=== PATIENT | female | born 1945 | race Hispanic/Latino ===

== ENCOUNTER → 2017-08-18 | Outpatient (CLI) | payer OTHER, MEDICARE ==
[~2017-08-18] MED LIST: ALEN70TA47 PO; ASPI-1197 PO; AZIT500T4 PO; CLON0.1T PO; FAMO20TA8 PO; GLIP10TA9 PO; HYDR12.530 PO; INSLAN SQ; METO50TA18 PO; OLME1TAB9 PO; OLOP2.5D OU; OMEG-98 PO; OSEL75 PO; OXYB5TAB10 PO; PROPOFOL 10 MG/ML 20ML VIAL IV ONE; REPA2TAB8 PO; ROSU20TA38 PO; SERT100T12 PO; SITA50TA PO; SUCR1TAB2 PO; TRAM50TA4 PO; TRAZ-144 PO
== END | disposition home or self-care (01) ==
LOC: RAH 16:02
PROVIDERS: ATTEND Psychiatry & Neurology Neurology
DX: M50.022 Cervical disc disorder at C5-C6 level with myelopathy (principal)
CPT/HCPCS: 72040

== ENCOUNTER 2017-08-20 08:17 | Day surgery (SDC) | payer OTHER, MEDICARE ==
[~2017-08-20 08:17] MED LIST changes: -AZIT500T4 PO; -OLME1TAB9 PO; -OLOP2.5D OU; -OMEG-98 PO; -OSEL75 PO; -OXYB5TAB10 PO; -PROPOFOL 10 MG/ML 20ML VIAL IV ONE; +SODIUM CHLORIDE 0.9% 1000ML 1,000 ML IV ONE
[2017-08-20 09:14] VITALS: BP 89/39
== END 2017-08-20 09:52 | disposition home or self-care (01) ==
LOC: DAH 08:17
PROVIDERS: ATTEND Internal Medicine Gastroenterology
DX: K22.70 Barrett's esophagus without dysplasia (principal); E11.9 Type 2 diabetes mellitus without complications; K21.9 Gastro-esophageal reflux disease without esophagitis; K58.8 Other irritable bowel syndrome; I10 Essential (primary) hypertension; E78.5 Hyperlipidemia, unspecified; M19.90 Unspecified osteoarthritis, unspecified site; F32.9 Major depressive disorder, single episode, unspecified; Z79.899 Other long term (current) drug therapy; Z86.010 Personal history of colon polyps; Z98.890 Other specified postprocedural states
CPT/HCPCS: 43239; 82948 ×2; 88305; 93005; A4606; J7030

== ENCOUNTER → 2017-09-16 | Outpatient (CLI) | payer OTHER, MEDICARE ==
[~2017-09-16] MED LIST changes: -FAMO20TA8 PO; -SODIUM CHLORIDE 0.9% 1000ML 1,000 ML IV ONE
== END ==
LOC: RAH 10:40
PROVIDERS: ATTEND Internal Medicine Gastroenterology
DX: K31.84 Gastroparesis (principal)
CPT/HCPCS: 78264; A9541

== ENCOUNTER → 2017-10-21 | Outpatient (CLI) | payer OTHER, MEDICARE ==
[~2017-10-21] MED LIST changes: +ROSU20TA30 PO; -ROSU20TA38 PO; -TRAZ-144 PO; +TRAZ-185 PO
== END | disposition home or self-care (01) ==
LOC: SHCH 14:12
PROVIDERS: ATTEND Internal Medicine Cardiovascular Disease
DX: I50.9 Heart failure, unspecified (principal); I31.3 Pericardial effusion (noninflammatory)
CPT/HCPCS: 93306

== ENCOUNTER → 2017-11-10 | Outpatient (CLI) | payer OTHER, MEDICARE ==
[~2017-11-10] MED LIST changes: +ALBUTEROL SULFATE 0.083% 2.5 MG/3 ML INH IH ONE
== END | disposition home or self-care (01) ==
LOC: RESP 12:56
PROVIDERS: ATTEND Internal Medicine
DX: J40 Bronchitis, not specified as acute or chronic (principal); R06.02 Shortness of breath; R06.00 Dyspnea, unspecified
CPT/HCPCS: 94060; 94727; 94729

== ENCOUNTER 2019-06-24 22:34 | Emergency (ER) | payer OTHER, MEDICARE ==
[~2019-06-24 22:34] MED LIST changes: -ALBUTEROL SULFATE 0.083% 2.5 MG/3 ML INH IH ONE; -ALEN70TA47 PO; +AMLO5TAB9 PO; +CALC-190 PO; +CETI10TA57 PO; +FLUT16H NASAL; +FURO20TA6 PO; +GABA-531 PO; -HYDR12.530 PO; +METO5TAB2 PO; +NAPR-1023 PO; +OLME1TAB84 PO; +OMEGA3 PO; +PANT40TA25 PO; -ROSU20TA30 PO; +ROSU20TA31 PO; -SUCR1TAB2 PO; -TRAM50TA4 PO; -TRAZ-185 PO
[2019-06-24 23:18] LABS: APPEARANCE,URINE Clear (CLEAR); BILIRUBIN,URINE Negative (NEGATIVE); COLOR,URINE Yellow (YELLOW); GLUCOSE, URINE (UA) Negative (NEGATIVE); KETONES,URINE Negative (NEGATIVE); LEUKOCYTE ESTERASE ,URINE Trace (NEGATIVE); NITRATE,URINE Negative (NEGATIVE); OCCULT BLOOD,URINE Small (NEGATIVE); PROTEIN,URINE POS 1+ mg/dL (NEGATIVE); UROBILINOGEN,URINE 0.2 mg/dL (0.2-1.0)
[2019-06-24] MEDS ORDERED: KETOROLAC TROMETHAMINE 30MG/ML ONE (23:18)
[2019-06-24] MEDS ORDERED: ONDANSETRON HCL 4 MG/2 ML VIAL ONE (23:18)
[2019-06-24] MEDS ORDERED: SODIUM CHLORIDE 0.9% 500ML 500 ML IV ONE (23:18)
[2019-06-24 23:24] LABS: BASOPHILS % (AUTO) 0.4 % (0.0-5.0); EOSINOPHILS % (AUTO) 0.6 % (0.0-8.0); HEMATOCRIT 34.4 % (36-48); LYMPHOCYTES % (AUTO) 22.5 % (21.0-51.0); MEAN CORPUSCULAR HGB CONC 33.1 g/dL (32.0-36.0); MEAN CORPUSCULAR VOLUME 93.5 fL (79-99); MONOCYTES % (AUTO) 7.2 % (3.0-13.0); NEUTROPHILS % (AUTO) 68.7 % (40.0-77.0); PLATELET COUNT (AUTO) 220 K/uL (130-400); RED BLOOD CELL COUNT(AUTO) 3.68 MIL/uL (4.00-5.50); RED CELL DISTRIBUTION WIDTH 14.3 % (11.0-15.5); WHITE BLOOD COUNT (AUTO) 11.2 K/uL (4.8-10.8)
[2019-06-24 23:31] LABS: CREATININE 1.3 mg/dL (0.5-1.5); POTASSIUM 4.5 mmol/L (3.5-5.1)
[2019-06-24 23:37] LABS: BACTERIA,URINE Few /HPF (None Seen); MUCUS,URINE Few LPF (None Seen); RBC,URINE 0-1 /HPF (0-1); SQUAMOUS EPITHELIAL CELL,UR Rare /HPF (0-2); WBC,URINE 0-1 /HPF (0-1)
[2019-06-24 23:38] LABS: ALBUMIN 3.4 g/dL (3.5-5.0); BILIRUBIN,DIRECT 0.1 mg/dL (0.0-0.3); BILIRUBIN,TOTAL 0.2 mg/dL (0.2-1.0); TOTAL PROTEIN, SERUM 7.4 g/dL (6.0-8.3)
[2019-06-25] MEDS ORDERED: DIAZEPAM 5 MG TABLET ONE (01:05)
== END 2019-06-25 01:17 | disposition home or self-care (01) ==
LOC: EDH 22:34
DX: R10.31 Right lower quadrant pain (principal); R19.7 Diarrhea, unspecified; Z91.010 Allergy to peanuts; E11.9 Type 2 diabetes mellitus without complications; E78.5 Hyperlipidemia, unspecified; I10 Essential (primary) hypertension; Z90.49 Acquired absence of other specified parts of digestive tract; Z98.890 Other specified postprocedural states
CPT/HCPCS: 36415; 74176; 80048; 80076; 81001; 82550; 83690; 84484; 85025; 93005; 96361; 96374; 96375; 99285; J1885; J2405; J7040

== ENCOUNTER → 2020-04-22 | Outpatient (CLI) | payer OTHER, MEDICARE ==
[~2020-04-22] MED LIST changes: +AMLO-257 PO; -AMLO5TAB9 PO; +OLME-9 PO; -OLME1TAB84 PO; -PANT40TA25 PO; +PANT40TA54 PO
== END | disposition home or self-care (01) ==
LOC: RAH 08:24
PROVIDERS: ATTEND Internal Medicine Gastroenterology
DX: K76.0 Fatty (change of) liver, not elsewhere classified (principal)
CPT/HCPCS: 76700

== ENCOUNTER 2020-05-01 17:54 | Emergency (ER) | payer OTHER, MEDICARE ==
[2020-05-01] MEDS ORDERED: HYDROCODONE/ACETAMINOPHEN 10/325 MG TAB ONE (18:52)
== END 2020-05-01 22:30 | disposition home or self-care (01) ==
LOC: EDH 17:54
DX: M25.562 Pain in left knee (principal); M79.661 Pain in right lower leg; W18.39XA Other fall on same level, initial encounter; Y93.89 Activity, other specified; Y92.098 Other place in other non-institutional residence as the place of occurrence of the external cause; Y99.8 Other external cause status
CPT/HCPCS: 70450; 72100; 72125; 73030; 73110; 73521; 73562; 73590; 93971

== ENCOUNTER → 2020-06-28 | Outpatient (CLI) | payer OTHER, MEDICARE ==
[~2020-06-28] MED LIST changes: +GADODIAMIDE 10 MMOL/20 ML VIAL IV ONE
== END | disposition home or self-care (01) ==
LOC: RAH 09:03
PROVIDERS: ATTEND Internal Medicine Gastroenterology
DX: R93.2 Abnormal findings on diagnostic imaging of liver and biliary tract (principal)
CPT/HCPCS: 74183; A9579

== ENCOUNTER → 2020-10-02 | Outpatient (CLI) | payer OTHER, MEDICARE ==
[~2020-10-02] MED LIST changes: -GADODIAMIDE 10 MMOL/20 ML VIAL IV ONE; +SERT-440 PO; -SERT100T12 PO
== END | disposition home or self-care (01) ==
LOC: RAH 08:00
PROVIDERS: ATTEND Internal Medicine Gastroenterology
DX: R93.2 Abnormal findings on diagnostic imaging of liver and biliary tract (principal); K76.0 Fatty (change of) liver, not elsewhere classified; R16.0 Hepatomegaly, not elsewhere classified; Z90.49 Acquired absence of other specified parts of digestive tract
CPT/HCPCS: 76700

== ENCOUNTER → 2021-09-15 | Outpatient (CLI) | payer OTHER ==
[~2021-09-15] VITALS: Wt 88.0 kg
== END | disposition home or self-care (01) ==
LOC: DTH 10:22
PROVIDERS: ATTEND Surgery
DX: Z71.3 Dietary counseling and surveillance (principal); G47.33 Obstructive sleep apnea (adult) (pediatric); I10 Essential (primary) hypertension; E11.9 Type 2 diabetes mellitus without complications; E78.00 Pure hypercholesterolemia, unspecified; K76.0 Fatty (change of) liver, not elsewhere classified; K21.9 Gastro-esophageal reflux disease without esophagitis; E66.09 Other obesity due to excess calories; Z68.37 Body mass index [BMI] 37.0-37.9, adult
CPT/HCPCS: 97802

== ENCOUNTER 2021-10-04 17:20 | Emergency (ER) | payer OTHER, MEDICARE ==
[~2021-10-04] VITALS: Ht 121.9 cm; Wt 90.7 kg
[2021-10-04] MEDS ORDERED: ONDANSETRON 4MG INJ IVP ONE (18:00)
[2021-10-04] MEDS ORDERED: 0.9%NACL 1000ML 1,000 ML IV ONE (18:00)
[2021-10-04] MEDS ORDERED: FAMOTIDINE 20MG VIAL IV ONE (18:00)
[2021-10-04 18:03] LABS: APPEARANCE,URINE Clear (CLEAR); BILIRUBIN,URINE Negative (NEGATIVE); COLOR,URINE Yellow (YELLOW); GLUCOSE, URINE (UA) Negative (NEGATIVE); KETONES,URINE Negative (NEGATIVE); LEUKOCYTE ESTERASE ,URINE Small (NEGATIVE); NITRATE,URINE Negative (NEGATIVE); OCCULT BLOOD,URINE Negative (NEGATIVE); PROTEIN,URINE POS 1+ mg/dL (NEGATIVE); UROBILINOGEN,URINE 0.2 mg/dL (0.2-1.0)
[2021-10-04 18:13] LABS: BASOPHILS % (AUTO) 0.4 % (0.0-5.0); EOSINOPHILS % (AUTO) 2.1 % (0.0-8.0); HEMATOCRIT 35.4 % (36-48); LYMPHOCYTES % (AUTO) 25.5 % (21.0-51.0); MEAN CORPUSCULAR HGB CONC 33.1 g/dL (32.0-36.0); MEAN CORPUSCULAR VOLUME 93.7 fL (79-99); MONOCYTES % (AUTO) 7.5 % (3.0-13.0); NEUTROPHILS % (AUTO) 64.2 % (40.0-77.0); PLATELET COUNT (AUTO) 197 K/uL (130-400); RED BLOOD CELL COUNT(AUTO) 3.78 MIL/uL (4.00-5.50); RED CELL DISTRIBUTION WIDTH 13.6 % (11.0-15.5); WHITE BLOOD COUNT (AUTO) 10.1 K/uL (4.8-10.8)
[2021-10-04 18:18] LABS: BACTERIA,URINE Few /HPF (None Seen); MUCUS,URINE Few LPF (None Seen); RBC,URINE 0-1 /HPF (0-1); SQUAMOUS EPITHELIAL CELL,UR Few /HPF (0-2)
[2021-10-04 18:23] LABS: CREATININE 1.4 mg/dL (0.5-1.5); POTASSIUM 3.9 mmol/L (3.5-5.1)
[2021-10-04 18:29] LABS: ALBUMIN 3.6 g/dL (3.5-5.0); BILIRUBIN,TOTAL 0.2 mg/dL (0.2-1.0); TOTAL PROTEIN, SERUM 7.6 g/dL (6.0-8.3)
[2021-10-04 19:30] VITALS: BP 132/58
[2021-10-04] MEDS ORDERED: LOPE1TAB PO (19:37)
[2021-10-04] MEDS ORDERED: L.AC1CAP6 PO (19:37)
[2021-10-04] MEDS ORDERED: ONDA4TAB10 PO (19:37)
[2021-10-04] MEDS ORDERED: LOPERAMIDE HCL 2 MG CAP PO ONE ×2 (19:49→20:00)
== END 2021-10-04 19:55 | disposition home or self-care (01) ==
LOC: EDH 17:20
DX: R19.7 Diarrhea, unspecified (principal); E11.9 Type 2 diabetes mellitus without complications; E78.00 Pure hypercholesterolemia, unspecified; I10 Essential (primary) hypertension; Z98.890 Other specified postprocedural states; Z79.899 Other long term (current) drug therapy; Z79.84 Long term (current) use of oral hypoglycemic drugs; Z79.82 Long term (current) use of aspirin; Z91.010 Allergy to peanuts; Z91.048 Other nonmedicinal substance allergy status
CPT/HCPCS: 36415; 74176; 80053; 81001; 83690; 85025; 93005; 96361; 96374; 96375; 99285; J2405; J3490; J7030

== ENCOUNTER → 2021-10-28 | Outpatient (CLI) | payer OTHER ==
[~2021-10-28] MED LIST changes: +L.AC1CAP6 PO; +LOPE1TAB PO; +ONDA4TAB10 PO
== END | disposition home or self-care (01) ==
LOC: DTH 11:18
PROVIDERS: ATTEND Surgery
DX: I10 Essential (primary) hypertension (principal); E66.3 Overweight; G47.33 Obstructive sleep apnea (adult) (pediatric); E11.9 Type 2 diabetes mellitus without complications; E78.00 Pure hypercholesterolemia, unspecified; K76.0 Fatty (change of) liver, not elsewhere classified; K21.9 Gastro-esophageal reflux disease without esophagitis
CPT/HCPCS: 97803

== ENCOUNTER → 2022-06-30 | Outpatient (CLI) | payer OTHER, MEDICARE ==
[~2022-06-30] MED LIST changes: +AMOX-426 PO; -ASPI-1197 PO; -CALC-190 PO; -CETI10TA57 PO; +CITA20TA17 PO; -CLON0.1T PO; +CLON0.2T PO; -FLUT16H NASAL; -FURO20TA6 PO; -GABA-531 PO; -GLIP10TA9 PO; -INSLAN SQ; +INSU100V3 SQ; -L.AC1CAP6 PO; -LOPE1TAB PO; -METO5TAB2 PO; -NAPR-1023 PO; -OLME-9 PO; -OMEGA3 PO; -ONDA4TAB10 PO; -PANT40TA54 PO; -REPA2TAB8 PO; -ROSU20TA31 PO; -SERT-440 PO; -SITA50TA PO; +TIRZ5PEN SQ
== END | disposition home or self-care (01) ==
LOC: RAH 13:01
PROVIDERS: ATTEND Family Medicine
DX: I10 Essential (primary) hypertension (principal); R55 Syncope and collapse
CPT/HCPCS: 70450

== ENCOUNTER → 2022-10-16 | Outpatient (CLI) | payer OTHER, MEDICARE ==
[~2022-10-16] MED LIST changes: +CEFU500T67 PO; +DIPH1TAB PO; +ONDA-104 PO
== END | disposition home or self-care (01) ==
LOC: RAH 10:04
PROVIDERS: ATTEND Internal Medicine Gastroenterology
DX: K21.9 Gastro-esophageal reflux disease without esophagitis (principal); R13.10 Dysphagia, unspecified; R14.0 Abdominal distension (gaseous)
CPT/HCPCS: 74240

== ENCOUNTER 2022-11-16 23:00 | Observation (INO) | payer OTHER, MEDICARE ==
[~2022-11-16] VITALS: Ht 152.4 cm; Wt 61.0 kg
[2022-11-17 01:33] LABS: BASOPHILS % (AUTO) 0.6 % (0.0-5.0); HEMATOCRIT 37.9 % (36-48); LYMPHOCYTES % (AUTO) 30.2 % (21.0-51.0); MEAN CORPUSCULAR HEMOGLOBIN 32.1 pg (27.0-33.0); MEAN CORPUSCULAR HGB CONC 33.2 g/dL (32.0-36.0); MEAN CORPUSCULAR VOLUME 96.7 fL (79-99); MONOCYTES % (AUTO) 7.3 % (3.0-13.0); NEUTROPHILS % (AUTO) 59.7 % (40.0-77.0); PLATELET COUNT (AUTO) 187 K/uL (130-400); RED BLOOD CELL COUNT(AUTO) 3.92 MIL/uL (4.00-5.50); RED CELL DISTRIBUTION WIDTH 12.8 % (11.0-15.5); WHITE BLOOD COUNT (AUTO) 8.4 K/uL (4.8-10.8)
[2022-11-17 01:47] LABS: ALBUMIN 3.8 g/dL (3.5-5.0); CREATININE 1.3 mg/dL (0.5-1.5); POTASSIUM 3.9 mmol/L (3.5-5.1); TOTAL PROTEIN, SERUM 7.7 g/dL (6.0-8.3)
[2022-11-17] MEDS ORDERED: DEXTROSE 50%-WATER 50 ML DISP.SYRIN IV ONE ×2 (01:50→02:00)
[2022-11-17] MEDS ORDERED: LACTULOSE 20 GM/30 ML UDCUP PO PRN (05:00)
[2022-11-17] MEDS ORDERED: DOCUSATE SODIUM 100 MG CAP PO PRN (05:00)
[2022-11-17] MEDS ORDERED: ACETAMINOPHEN 325 MG TAB PO PRN (05:00)
[2022-11-17] MEDS ORDERED: ACETAMINOPHEN 650 MG SUPPOSITORY RC PRN (05:00)
[2022-11-17] MEDS ORDERED: HYDRALAZINE 20MG/ML VIAL IV PRN (05:00)
[2022-11-17] MEDS ORDERED: TEMAZEPAM 15 MG CAPSULE PO PRN (05:00)
[2022-11-17] MEDS ORDERED: ONDANSETRON 4MG INJ IVP PRN (05:00)
[2022-11-17] MEDS ORDERED: LABETALOL 20MG SYG IV PRN (05:00)
[2022-11-17] MEDS ORDERED: CLONIDINE HCL 0.1 MG TABLET PO PRN (05:00)
[2022-11-17] MEDS ORDERED: DEXL60CA3 PO (05:55)
[2022-11-17] MEDS ORDERED: METO-391 PO (05:55)
[2022-11-17] MEDS ORDERED: OLME-9 PO (05:55)
[2022-11-17] MEDS ORDERED: INSU500V SQ (05:55)
[2022-11-17] MEDS ORDERED: ONDA4TAB10 PO (05:55)
[2022-11-17] MEDS ORDERED: CITA-107 PO (05:55)
[2022-11-17] MEDS ORDERED: SUCR1TAB2 PO (05:55)
[2022-11-17] MEDS ORDERED: ROSU20TA73 PO (05:55)
[2022-11-17] MEDS ORDERED: POTASSIUM CHLORIDE 10% ELIXIR 20 MEQ/15 ML UDCUP PO PRN (06:00)
[2022-11-17] MEDS ORDERED: KCL 20 MEQ ERTAB PO PRN (06:00)
[2022-11-17] MEDS ORDERED: POTASSIUM CHLORIDE 10MEQ/100ML 100 ML IV PRN (06:00)
[2022-11-17] MEDS ORDERED: MAGNESIUM 2GM PREMIX 50ML 50 ML IV PRN (06:00)
[2022-11-17] MEDS: DEXTROSE 5 % AND 0.9 % NACL 1,000 ML IV SCH ×3 (06:18→22:38)
[2022-11-17] MEDS: PANTOPRAZOLE 40 MG/VIAL IVP SCH ×2 (09:29→19:42)
[2022-11-17] MEDS: POLYETHYLENE GLYCOL 3350 17 GM POWD.PACK PO SCH (09:29)
[2022-11-17] MEDS: DOCUSATE SODIUM 100 MG CAP PO SCH (09:30)
[2022-11-17] MEDS: ENOXAPARIN SODIUM 30 MG/0.3 ML SQ SCH (09:30)
[2022-11-17] MEDS: SUCRALFATE 1 GM TABLET PO SCH ×2 (11:50→17:49)
[2022-11-17 14:15] LABS: APPEARANCE,URINE CLEAR (CLEAR); BILIRUBIN,URINE NEGATIVE (NEGATIVE); COLOR,URINE COLORLESS (YELLOW); GLUCOSE, URINE (UA) NEGATIVE (NEGATIVE); KETONES,URINE NEGATIVE (NEGATIVE); LEUKOCYTE ESTERASE ,URINE NEGATIVE Leu/uL (NEGATIVE); NITRATE,URINE NEGATIVE (NEGATIVE); OCCULT BLOOD,URINE NEGATIVE (NEGATIVE); PROTEIN,URINE NEGATIVE (NEGATIVE); UROBILINOGEN,URINE 0.2 mg/dL (0.2-1.0)
[2022-11-17 14:28] LABS: WBC,URINE 0-1 /HPF (0-1)
[2022-11-18 05:52] LABS: BASOPHILS % (AUTO) 0.6 % (0.0-5.0); EOSINOPHILS % (AUTO) 3.7 % (0.0-8.0); HEMATOCRIT 34.8 % (36-48); LYMPHOCYTES % (AUTO) 41.3 % (21.0-51.0); MEAN CORPUSCULAR HEMOGLOBIN 32.8 pg (27.0-33.0); MEAN CORPUSCULAR HGB CONC 33.3 g/dL (32.0-36.0); MEAN CORPUSCULAR VOLUME 98.3 fL (79-99); MONOCYTES % (AUTO) 8.3 % (3.0-13.0); PLATELET COUNT (AUTO) 164 K/uL (130-400); RED BLOOD CELL COUNT(AUTO) 3.54 MIL/uL (4.00-5.50); RED CELL DISTRIBUTION WIDTH 12.9 % (11.0-15.5)
[2022-11-18 06:01] LABS: CREATININE 1.3 mg/dL (0.5-1.5); MAGNESIUM 1.9 mg/dL (1.80-2.40); PHOSPHORUS 4.3 mg/dL (2.5-4.9); POTASSIUM 4.5 mmol/L (3.5-5.1)
[2022-11-18] MEDS ORDERED: POLYETHYLENE GLYCOL 3350 17 GM POWD.PACK PO SCH (10:00)
[2022-11-18] MEDS ORDERED: LOSARTAN 50 MG TABLET ONE (10:05)
[2022-11-18] MEDS: DOCUSATE SODIUM 100 MG CAP PO SCH (10:07)
[2022-11-18] MEDS: METOCLOPRAMIDE 10 MG/2 ML VIAL IVP SCH ×3 (10:07→16:28)
[2022-11-18] MEDS: POLYETHYLENE GLYCOL 3350 17 GM POWD.PACK PO SCH (10:07)
[2022-11-18] MEDS: SUCRALFATE 1 GM TABLET PO SCH ×3 (10:07→16:28)
[2022-11-18] MEDS: CITALOPRAM 20 MG TABLET PO SCH (10:07)
[2022-11-18] MEDS: METOPROLOL SUCCINATE 50 MG TAB.SR.24H PO SCH (10:07)
[2022-11-18] MEDS: PANTOPRAZOLE 40 MG/VIAL IVP SCH ×2 (10:08→22:56)
[2022-11-18] MEDS: HYDROCHLOROTHIAZIDE 25 MG TABLET PO SCH (10:08)
[2022-11-18] MEDS: LOSARTAN 100 MG TABLET PO SCH (10:08)
[2022-11-18] MEDS: ENOXAPARIN SODIUM 30 MG/0.3 ML SQ SCH (10:08)
[2022-11-18 22:00] VITALS: BP 102/66
[2022-11-19] VITALS: BP 126/54
[2022-11-19 04:16] VITALS: BP 112/54
[2022-11-19] MEDS: METOCLOPRAMIDE 10 MG/2 ML VIAL IVP SCH ×3 (05:26→17:24)
[2022-11-19] MEDS: SUCRALFATE 1 GM TABLET PO SCH ×3 (05:26→17:24)
[2022-11-19 07:30] VITALS: BP 106/53
[2022-11-19] MEDS: HYDROCHLOROTHIAZIDE 25 MG TABLET PO SCH (10:07)
[2022-11-19] MEDS: CITALOPRAM 20 MG TABLET PO SCH (10:07)
[2022-11-19] MEDS: LOSARTAN 100 MG TABLET PO SCH (10:08)
[2022-11-19] MEDS: PANTOPRAZOLE 40 MG/VIAL IVP SCH (10:08)
[2022-11-19] MEDS: DOCUSATE SODIUM 100 MG CAP PO SCH (10:08)
[2022-11-19] MEDS: METOPROLOL SUCCINATE 50 MG TAB.SR.24H PO SCH (10:08)
[2022-11-19] MEDS: POLYETHYLENE GLYCOL 3350 17 GM POWD.PACK PO SCH (10:08)
[2022-11-19] MEDS: ENOXAPARIN SODIUM 30 MG/0.3 ML SQ SCH (10:09)
[2022-11-19 11:00] VITALS: BP 113/66
[2022-11-19] MEDS ORDERED: LACTULOSE 20 GM/30 ML UDCUP PO ONE (12:00)
[2022-11-19] MEDS ORDERED: METO5TAB87 PO (15:54)
[2022-11-19 16:00] VITALS: BP 113/56
== END 2022-11-19 18:00 | disposition home or self-care (01) ==
LOC: EDH 23:00 → EDHIP 11-17 04:45 → 3DH 11-18 20:31
PROVIDERS: ADMIT Internal Medicine Critical Care Medicine; ATTEND Internal Medicine Critical Care Medicine
DX: K31.84 Gastroparesis (principal); R42 Dizziness and giddiness; S00.12XA Contusion of left eyelid and periocular area, initial encounter; S00.11XA Contusion of right eyelid and periocular area, initial encounter; K29.50 Unspecified chronic gastritis without bleeding; K59.00 Constipation, unspecified; E11.649 Type 2 diabetes mellitus with hypoglycemia without coma; E66.3 Overweight; I10 Essential (primary) hypertension; K21.9 Gastro-esophageal reflux disease without esophagitis; E11.43 Type 2 diabetes mellitus with diabetic autonomic (poly)neuropathy; E73.9 Lactose intolerance, unspecified; Z79.4 Long term (current) use of insulin; Z79.899 Other long term (current) drug therapy; Z79.82 Long term (current) use of aspirin; Z98.84 Bariatric surgery status; Z91.010 Allergy to peanuts; X58.XXXA Exposure to other specified factors, initial encounter; Y93.89 Activity, other specified; Y92.89 Other specified places as the place of occurrence of the external cause
CPT/HCPCS: 96376 ×3; 96372 ×3; 96361 ×2; 96375 ×2; 99285; 80053; 83690; 85025 ×2; 82948 ×17; 81001; 36415 ×2; 74176; 83735; 84100; 80048; 96365; G0378 ×60; J7042 ×2; J7070; J1650 ×3; J2405; C9113 ×5; J2765 ×4; J3475

== ENCOUNTER 2023-06-04 11:28 | Emergency (ER) | payer OTHER, MEDICARE ==
[~2023-06-04] VITALS: Ht 152.4 cm; Wt 63.5 kg
[~2023-06-04 11:28] MED LIST changes: -AMLO-257 PO; -AMOX-426 PO; +CITA-107 PO; -CITA20TA17 PO; -CLON0.2T PO; +DEXL60CA3 PO; -INSU100V3 SQ; +METO-391 PO; -METO50TA18 PO; +METO5TAB87 PO; +OLME-9 PO; +ONDA4TAB10 PO; +ROSU20TA73 PO; +SUCR1TAB2 PO; -TIRZ5PEN SQ
[2023-06-04 11:32] VITALS: BP 142/70; PULSE 97; RESP 16
== END 2023-06-04 13:11 | disposition left against medical advice (07) ==
LOC: EDH 11:28
DX: F32.A Depression, unspecified (principal); F41.9 Anxiety disorder, unspecified; I10 Essential (primary) hypertension; E78.00 Pure hypercholesterolemia, unspecified; Z79.899 Other long term (current) drug therapy; Z98.890 Other specified postprocedural states; Z88.8 Allergy status to other drugs, medicaments and biological substances; Z91.018 Allergy to other foods
CPT/HCPCS: 99281

== ENCOUNTER → 2024-01-18 | Outpatient (CLI) | payer OTHER, MEDICARE ==
[~2024-01-18] MED LIST changes: +OLME-30 PO; -OLME-9 PO; +ONDA-243 PO; -ONDA4TAB10 PO
[2024-01-18 13:42] LABS: CREATININE 1.7 mg/dL (0.5-1.0); POTASSIUM 4.5 mmol/L (3.5-5.1)
== END | disposition home or self-care (01) ==
LOC: LAB 10:36
PROVIDERS: ATTEND Nurse Practitioner Acute Care
DX: I25.10 Atherosclerotic heart disease of native coronary artery without angina pectoris (principal); E78.2 Mixed hyperlipidemia
CPT/HCPCS: 36415; 80048; 80061

== ENCOUNTER → 2024-10-03 | Outpatient (CLI) | payer OTHER, MEDICARE ==
[~2024-10-03] MED LIST changes: -ROSU20TA73 PO; +ROSU20TA98 PO
[2024-10-03 16:30] LABS: CREATININE 1.5 mg/dL (0.5-1.0); POTASSIUM 4.2 mmol/L (3.5-5.1)
== END | disposition home or self-care (01) ==
LOC: LAB 14:08
PROVIDERS: ATTEND Internal Medicine Cardiovascular Disease
DX: I13.0 Hypertensive heart and chronic kidney disease with heart failure and stage 1 through stage 4 chronic kidney disease, or unspecified chronic kidney disease (principal); E11.22 Type 2 diabetes mellitus with diabetic chronic kidney disease; I50.32 Chronic diastolic (congestive) heart failure; N18.32 Chronic kidney disease, stage 3b
CPT/HCPCS: 36415; 80048

== ENCOUNTER 2024-11-14 14:52 | Emergency (ER) | payer OTHER, MEDICARE ==
[~2024-11-14] VITALS: Ht 152.4 cm; Wt 65.3 kg
--- NOTE | 2024-11-14 15:54 | NUR ---
PT STATES SHE ATTEMPTED TO GO TO THE RESTROOM BUT WAS UNABLE TO PROVIDE URINE SAMPLE
[2024-11-14 16:51] LABS: BASOPHILS # (AUTO) 0.06 K/uL (0.00-0.20); BASOPHILS % (AUTO) 0.6 % (0.0-5.0); EOSINOPHILS # (AUTO) 0.09 K/uL (0.00-0.70); EOSINOPHILS % (AUTO) 0.9 % (0.0-8.0); HEMATOCRIT 34.1 % (36-48); IMMATURE GRANULOCYTE ABSOLUTE 0.03 K/uL (0-1); LYMPHOCYTES # (AUTO) 3.8 K/uL (1.0-4.8); LYMPHOCYTES % (AUTO) 37.7 % (21.0-51.0); MEAN CORPUSCULAR HEMOGLOBIN 32.5 pg (27.0-33.0); MEAN CORPUSCULAR HGB CONC 33.1 g/dL (32.0-36.0); MONOCYTES # (AUTO) 0.9 K/uL (0.1-1.0); MONOCYTES % (AUTO) 9.2 % (3.0-13.0); NEUTROPHILS # (AUTO) 5.1 K/uL (1.8-7.7); NEUTROPHILS % (AUTO) 51.3 % (40.0-77.0); PLATELET COUNT (AUTO) 155 K/uL (130-400); RED BLOOD CELL COUNT(AUTO) 3.48 MIL/uL (4.00-5.50)
[2024-11-14] MEDS: mecliZINE HCL 25 MG TABLET PO ONE (17:01)
[2024-11-14] MEDS: 0.9%NACL 1000ML 1,000 ML IV ONE (17:01)
[2024-11-14] MEDS: ondanSETRON 4MG INJ IVP ONE (17:01)
[2024-11-14 17:02] LABS: CREATININE 1.5 mg/dL (0.5-1.0); POTASSIUM 4.4 mmol/L (3.5-5.1)
[2024-11-14 17:07] LABS: ADD UA MICROSCOPIC YES; APPEARANCE,URINE CLEAR (CLEAR); BILIRUBIN,URINE NEGATIVE (NEGATIVE); COLOR,URINE COLORLESS (YELLOW); GLUCOSE, URINE (UA) NEGATIVE (NEGATIVE); KETONES,URINE NEGATIVE (NEGATIVE); LEUKOCYTE ESTERASE ,URINE NEGATIVE Leu/uL (NEGATIVE); NITRATE,URINE NEGATIVE (NEGATIVE); OCCULT BLOOD,URINE NEGATIVE (NEGATIVE); PROTEIN,URINE 30 mg/dL (NEGATIVE); UROBILINOGEN,URINE 0.2 mg/dL (0.2-1.0)
[2024-11-14 17:09] LABS: RBC,URINE 0-1 /HPF (0-1); SQUAMOUS EPITHELIAL CELL,UR RARE /HPF (0-2)
[2024-11-14 17:13] LABS: ALBUMIN 3.2 g/dL (3.5-5.0); BILIRUBIN,TOTAL 0.3 mg/dL (0.2-1.0)
--- NOTE | 2024-11-14 17:32 | HMCIMG ---
CT HEAD WITHOUT CONTRAST INDICATION: Dizziness TECHNIQUE: Noncontrast axial helical CT images from the vertex through the skull base using 5 mm slice thickness without contrast material. Coronal and sagittal reconstructions were also included. Dose reduction techniques was used using integrated, automated and adaptive dose reduction exposure control. CT was performed with one or more of the following dose reduction techniques: Automated exposure control, adjustment of the mA and/or kV according to patient size, or use of iterative reconstruction technique. COMPARISON: 06/30/2022 FINDINGS: Scattered and coalescent subcortical and periventricular white matter low attenuating areas likely represent residual of chronic small vessel arteriopathy and/or remote vascular insult. Generalized mild cerebral cortical atrophy is present.. No evidence for abnormal extra-axial fluid collections or masses. The ventricles and sulci are normal in size and configuration. No evidence for intracranial parenchymal, epidural, or subdural hemorrhage, mass effect or midline shift. The valencia-white matter differentiation is well preserved. No secondary evidence to suggest acute ischemia. Mild calcific plaque is present along the dunn of the cavernous segments of both internal carotid arteries. The brainstem and cerebellum appear normal. The visualized orbits appear unremarkable. The visible paranasal sinuses and mastoid air cells are clear. The calvarium appears normal. IMPRESSION: Chronic white matter ischemic changes, mild brain atrophy, and arteriosclerotic disease as described, without acute component.
--- NOTE | 2024-11-14 18:01 | ERN ---
General Chief Complaint: Dizzy/Light Headed Stated Complaint: REACTION TO MEDICATIONS, DIZZY AND FATIGUE,SHAKING Time Seen by MD: 15:17 Time Seen by Midlevel: 15:17 Source: patient History of Present Illness Initial Comments The patient is a 79-year-old female presenting to the emergency department for evaluation of a possible medication reaction. The patient reports taking escitalopram and atorvastatin together and believes she may have had a reaction. She reports taking this medication earlier today and later developing dizziness, headache, generalized weakness, and a feeling of "jitteriness.". The patient reports having a history of type 2 diabetes and is on insulin and feels like her sugar is low. Allergies: Coded Allergies: No Known Drug Allergies (Verified Allergy, Unknown, 02/26/16) lactose (Unverified Allergy, Unknown, BLOATING, 02/26/16) LACTOSE INTOLERANCE peanut (Unverified Allergy, Unknown, NAUSEA/VOMITING, 02/26/16) PEANUT INTOLERANCE Home Meds Active Scripts Metoclopramide HCl (Reglan) 5 Mg Tablet, 5 MG PO ACHS for 30 Days, #120 TAB Prov:WILL DE LEON NP 11/19/22 Ondansetron HCl (Ondansetron HCl) 4 Mg Tablet, 4 MG PO TIDP PRN for VOMITING, #20 TAB Prov:BINA ROBERSON MD 08/19/22 Diphenoxylate HCl/Atropine (Lomotil Tablet) 1 Each Tablet, 2 TAB PO Q6HPRN PRN for DIARRHEA for 5 Days, #10 TAB 0 Refills Prov:BINA ROBERSON MD 08/19/22 Cefuroxime Axetil (Cefuroxime) 500 Mg Tablet, 500 MG PO BID, #20 TAB Prov:BINA ROBERSON MD 08/19/22 Reported Medications Sucralfate (Sucralfate) 1 Gm Tablet, 1 GM PO TIDAC, TAB 11/17/22 Dexlansoprazole (Dexilant) 60 Mg , 60 MG PO DAILY 11/17/22 Ondansetron (Ondansetron Odt) 4 Mg Tab.rapdis, 4 MG PO TID PRN for NAUS EA/VOMITING, TAB 11/17/22 Rosuvastatin Calcium (Rosuvastatin Calcium) 20 Mg Tablet, 20 MG PO DAILY, TAB 11/17/22 Olmesartan/Hydrochlorothiazide (Olmesartan-Hctz 40-12.5 mg Tab) 1 Each Tablet, 1 EACH PO DAILY, TAB 11/17/22 Citalopram Hydrobromide (Citalopram HBr) 20 Mg Tablet, 20 MG PO DAILY, TAB 11/17/22 Metoprolol Succinate (Metoprolol Succinate) 50 Mg Tab.er.24h, 50 MG PO DAILY, TAB 11/17/22 Past Medical History Past Medical History: Diabetes-Type II, High Cholesterol Medical History Other: HTN, DIABETES, CHOLESTEROL, KIDNEY PROBLEMS Past Surgical History: Bariatric Surgery, Surgical History Other: " REMOVAL FLUID FROM MY CHEST" Family History Family History: DM, HTN Social History Social History: Negative, Lives with family ROS Dictation CONSTITUTIONAL: Negative except for HPI HEAD/FACE: Negative except for HPI EENT: Negative except for HPI RESPIRATORY: Negative except for HPI GASTROINTESTINAL/ABDOMINAL: Negative except for HPI GENITOURINARY: Negative except for HPI MUSCULOSKELETAL: Negative except for HPI INTEGUMENTARY: Negative except for HPI NEUROLOGICAL/PSYCH: Negative except for HPI HEMATOLOGIC/LYMPHATIC: Negative except for HPI All Systems Negative, Except as noted above. 13 point review of systems assessed and all negative except for above. Physical Exam Physical Exam Dictation Vital Signs reviewed General Appearance: Alert, oriented x 3, no acute distress, well developed, nourished. Head and Face: non-traumatic. Eyes: PERRL, pink conjunctivas, eyelid no trauma, anterior chamber with arcus senilis. Ears: Pinnas intact and no signs of trauma or erythema ear canals clear and no discharge TM no erythema Nose: No discharge, no bleeding. Oropharynx: Mouth normal, tongue pink, pharynx clear,no erythema, tonsils no exudates, no abscesses noted, mucous membrane moist Neck: Supple, non-tender, no thyromegaly, no masses, no JVD, no bruits Breast:Deferred Chest:No tenderness, no crepitus, no paradoxical movement, no retractions Lungs:Clear, well-ventilated, symmetric, no rales, no wheezing, no rhonchi, no stridor, good breath sounds bilaterally Heart: Regular rate, regular rhythm, no murmur, no gallops Vascular: no peripheral edema, Abdomen: Soft, positive bowel sounds, nondistended, no guarding, nontender, no rebound, no masses no hepatomegaly, no splenomegaly, no Hardin's sign, no hernias. Rectal: Deferred Genital: Deferred Neurological: Normal speech, motor function intact, sensory function intact Musculoskeletal: Neck nontender, full range of motion, back nontender, full range of motion, Extremities: nontender, full range of motion Skin: Color pink, dry, no turgor, no rash, no lacerations, no abrasions, no contusions. Lymphatic: Deferred Results Laboratory and Microbiology Lab and Micro Result Laboratory Tests Test 11/14/24 16:44 11/14/24 16:54 11/14/24 16:55 White Blood Count 10.0 K/uL (4.8-10.8) Red Blood Count 3.48 MIL/uL (4.00-5.50) L Hemoglobin 11.3 g/dL (12.0-16.0) L Hematocrit 34.1 % (36-48) L Mean Corpuscular Volume 98.0 fL (79-99) Mean Corpuscular Hemoglobin 32.5 pg (27.0-33.0) Mean Corpuscular Hemoglobin Concent 33.1 g/dL (32.0-36.0) Red Cell Distribution Width 13.0 % (11.0-15.5) Platelet Count 155 K/uL (130-400) Mean Platelet Volume 11.7 fL (7.5-10.5) H Immature Granulocyte % (Auto) 0.3 % (0-1) Neutrophils (%) (Auto) 51.3 % (40.0-77.0) Lymphocytes (%) (Auto) 37.7 % (21.0-51.0) Monocytes (%) (Auto) 9.2 % (3.0-13.0) Eosinophils (%) (Auto) 0.9 % (0.0-8.0) Basophils (%) (Auto) 0.6 % (0.0-5.0) Neutrophils # (Auto) 5.1 K/uL (1.8-7.7) Lymphocytes # (Auto) 3.8 K/uL (1.0-4.8) Monocytes # (Auto) 0.9 K/uL (0.1-1.0) Eosinophils # (Auto) 0.09 K/uL (0.00-0.70) Basophils # (Auto) 0.06 K/uL (0.00-0.20) Absolute Immature Granulocyte (auto 0.03 K/uL (0-1) Nucleated Red Blood Cells 0.0 % (0.0-0.19) Sodium Level 142 mmol/L (136-145) Potassium Level 4.4 mmol/L (3.5-5.1) Chloride Level 106 mmol/L (101-111) Carbon Dioxide Level 28 mmol/L (21-32) Blood Urea Nitrogen 31 mg/dL (7-18) H Creatinine 1.5 mg/dL (0.5-1.0) H Glomerular Filtration Rate Calc 35 mL/min (>90) Random Glucose 71 mg/dL (70-105) Total Calcium 9.0 mg/dL (8.5-10.1) Total Bilirubin 0.3 mg/dL (0.2-1.0) Aspartate Amino Transf (AST/SGOT) 28 U/L (10-37) Alanine Aminotransferase (ALT/SGPT) 24 U/L (12-78) Alkaline Phosphatase 124 U/L (50-136) Troponin I High Sensitivity 7 ng/L (4-50) Total Protein 7.0 g/dL (6.0-8.3) Albumin 3.2 g/dL (3.5-5.0) L Urine Color COLORLESS (YELLOW) Urine Appearance CLEAR (CLEAR) Urine pH 6.0 (5.0-8.0) Urine Specific [place] 1.004 (1.001-1.031) Urine Protein 30 mg/dL (NEGATIVE) H Urine Glucose (UA) NEGATIVE mg/dL (NEGATIVE) Urine Ketones NEGATIVE mg/dL (NEGATIVE) Urine Occult Blood NEGATIVE (NEGATIVE) Urine Nitrate NEGATIVE (NEGATIVE) Urine Bilirubin NEGATIVE mg/dL (NEGATIVE) Urine Urobilinogen 0.2 mg/dL (0.2-1.0) Urine Leukocyte Esterase NEGATIVE Sharath/uL Urine RBC 0-1 /HPF (0-1) Urine WBC 2-5 /HPF (0-1) H Urine Squamous Epithelial Cells RARE /HPF (0-2) Urine Bacteria None /HPF (None Seen) Whole Blood Glucose 85 MG/DL (70-110) Labs Reviewed?: Yes MDM MDM: Differential diagnosis: Dehydration, electrolyte abnormality, medication reaction There are no social concerns with this patient. Prescription drug management Prescriptions will include: None Medical management and examination interpretation discussions were had by me with other qualified healthcare professionals as indicated for the patient's care. ED Course Orders Procedure Category Date Status Time Cbc With Differential LAB 11/14/24 Complete 16:32 Comprehensive LAB 11/14/24 Complete Metabolic Panel 16:32 Urinalysis Profile LAB 11/14/24 Complete 16:32 12 Lead Ekg Tracing- EKG 11/14/24 Logged Technical 16:33 Troponin I High LAB 11/14/24 Complete Sensitivity 16:52 Ondansetron 4mg Inj PHA 11/14/24 Complete (Zofran 4mg Inj) 17:00 Meclizine Hcl 25 Mg PHA 11/14/24 Complete (Antivert 25 Mg) 17:00 0.9%Nacl 1000ml (Ns PHA 11/14/24 Complete 1000ml) 17:00 Ct Head/Brain W/O CT 11/14/24 Resulted Contrast 16:52 Pelvis 1-2vws RAD 11/14/24 Taken 18:05 Hip Unilat 2-3vw Right RAD 11/14/24 Resulted 18:05 Current Medications Medications (Trade) Dose Ordered Sig/Nicola Route PRN Reason Start Time Stop Time Status Last Admin Dose Admin Meclizine HCl (ANTIvert 25 mg) 25 mg ONCE ONCE PO 11/14/24 17:00 11/14/24 17:01 DC 11/14/24 17:01 Ondansetron HCl (zoFRAN 4MG INJ) 4 mg ONCE ONCE IVP 11/14/24 17:00 11/14/24 17:01 DC 11/14/24 17:01 Sodium Chloride 1,000 ml @ 0 mls/hr ONCE ONCE IV 11/14/24 17:00 11/14/24 17:01 DC 11/14/24 17:01 Vital Signs Date Time Temp Pulse Resp B/P (MAP) Pulse Ox O2 Delivery O2 Flow Rate FiO2 11/14/24 17:57 98.2 68 18 138/63 100 Room Air* 0 21 11/14/24 17:00 98.2 68 18 156/61 100 Room Air* 0 21 11/14/24 15:54 98.2 68 18 150/61 100 Room Air* 0 21 11/14/24 15:03 99.0 89 20 151/73 100 Room Air DX & DISP Disposition: Discharge Departure Impression: Primary Impression: Dehydration Additional Impression: Osteoarthritis of right hip Condition: Stable Additional Instructions: Your blood work today is consistent with dehydration. Your x-ray of the right hip does not show any evidence of an acute fracture or dislocation Referrals: OPHELIA MCKEON DO (PCP) Time of Disposition: 18:01 I have reviewed the case, and I agree with, Diagnosis and Plan I performed the substantive portion of the visit. I have reviewed and pers onally made and approve the management plan that is documented in the note by myself or the ARTEM. I acknowledge for responsibility for the patient's management plan. PURVI GARRISON November 14, 2024 18:01
--- NOTE | 2024-11-14 19:13 | HMCIMG ---
HIP UNILAT 2-3VW RIGHT HISTORY: Status post fall COMPARISON: None TECHNIQUE: 2 images of right hip were obtained. FINDINGS: Right hip joint space narrowing is seen. Vascular calcifications are seen. There is no acute displaced fracture or dislocation. Degenerative changes are seen. IMPRESSION: 1. Findings as described above.
--- NOTE | 2024-11-14 19:18 | HMCIMG ---
PELVIS 1-2VWS HISTORY: Status post fall COMPARISON: None TECHNIQUE: Frontal projection of the pelvis was obtained. FINDINGS: There is no acute displaced fracture or dislocation. Bilateral hip joint space narrowing is seen. Vascular calcifications are seen. Degenerative changes are seen. IMPRESSION: 1. Findings as described above.
[2024-11-14] MEDS ORDERED: MECL-302 PO (19:39)
[2024-11-14 19:46] VITALS: BP 155/69; PULSE 80; RESP 18; TEMP 98.1; O2SAT 99
--- NOTE | 2024-11-15 06:52 | EKG ---
[facility] Test Date: 2024-11-14 Test Time: 16:37:42 Pat Name: VANESSA GARRISON Department: ED Room: Gender: F Claim Technician: [id number] [phone] [id number] Requested By: PURVI GARRISON Order Number: [id number] Reading MD: Bentley Gonzalez Measurements Intervals [place] Rate: 73 P: 69 [place]: 130 QRS: 61 QRSD: 76 T: 34 QT: 395 QTc: 431 Interpretive Statements Sinus rhythm Atrial premature complex Compared to ECG 03/26/2022 18:41:47 Atrial premature complex(es) now present Atrial fibrillation no longer present ST (T wave) deviation no longer present Possible ischemia no longer present Electronically Signed On 11-15-2024 07:39:42 CDT by Bentley Gonzalez Please click the below link to view image of tracing.
== END 2024-11-14 19:49 | disposition home or self-care (01) ==
LOC: EDH 14:52
DX: E86.0 Dehydration (principal); M16.11 Unilateral primary osteoarthritis, right hip; E11.9 Type 2 diabetes mellitus without complications; E78.00 Pure hypercholesterolemia, unspecified; I10 Essential (primary) hypertension; Z79.4 Long term (current) use of insulin; Z79.899 Other long term (current) drug therapy
CPT/HCPCS: 99285; 96374; 70450; 84484; 80053; 85025; 82948; 81001; 36415; 73502; 93005; 72170; J2405

== ENCOUNTER 2025-02-08 09:42 | Emergency (ER) | payer OTHER, MEDICAID ==
[~2025-02-08] VITALS: Ht 152.4 cm; Wt 62.1 kg
[~2025-02-08 09:42] MED LIST changes: +MECL-302 PO
--- NOTE | 2025-02-08 10:07 | ERN ---
ED Note History of Present Illness Stated Complaint: WEAKNESS Chief Complaint: Weakness Time Seen by : 10:00 Dictation: PATIENT IS A 79-YEAR-OLD FEMALE WITH A HISTORY OF PANCREATITIS THAT IS STARTED PANCREATIC ENZYME REPLACEMENT ON WEDNESDAY. SHE STATES SHE HAS BEEN FEELING WEAK SINCE TAKING THE NEW MEDICATIONS. SHE STATES SHE HAS HAD NAUSEA WITHOUT VOMITING NO FEVER NO CHILLS AND DIFFUSE ABDOMINAL PAIN. NO CHEST PAIN NO BACK PAIN NO SOB. NO FEVER AT THIS TIME. DOES STATE SHE DOES NOT FEEL GOOD AFTER STARTING THE MEDICATIONS. Allergies: Coded Allergies: No Known Drug Allergies (Verified Allergy, Unknown, 02/26/16) lactose (Unverified Allergy, Unknown, BLOATING, 02/26/16) LACTOSE INTOLERANCE peanut (Unverified Allergy, Unknown, NAUSEA/VOMITING, 02/26/16) PEANUT INTOLERANCE Home Meds Active Scripts Meclizine HCl (Meclizine HCl) 25 Mg Tablet, 25 MG PO TID for vertigo, #30 TAB 0 Refills Prov:PURVI GARRISON PA 11/14/24 Metoclopramide HCl (Reglan) 5 Mg Tablet, 5 MG PO ACHS for 30 Days, #120 TAB Prov:WILL DE LEON CRIME SPECIALIST 11/19/22 Ondansetron HCl (Ondansetron HCl) 4 Mg Tablet, 4 MG PO TIDP PRN for VOMITING, #20 TAB Prov:BINA ROBERSON MD 08/19/22 Diphenoxylate HCl/Atropine (Lomotil Tablet) 1 Each Tablet, 2 TAB PO Q6HPRN PRN for DIARRHEA for 5 Days, #10 TAB 0 Refills Prov:BINA ROBERSON MD 08/19/22 Cefuroxime Axetil (Cefuroxime) 500 Mg Tablet, 500 MG PO BID, #20 TAB Prov:BINA ROBERSON MD 08/19/22 Reported Medications Sucralfate (Sucralfate) 1 Gm Tablet, 1 GM PO TIDAC, TAB 11/17/22 Dexlansoprazole (Dexilant) 60 Mg , 60 MG PO DAILY 11/17/22 Ondansetron (Ondansetron Odt) 4 Mg Tab.rapdis, 4 MG PO TID PRN for NAUSEA/VOMITING, TAB 11/17/22 Rosuvastatin Calcium (Rosuvastatin Calcium) 20 Mg Tablet, 20 MG PO DAILY, TAB 11/17/22 Olmesartan/Hydrochlorothiazide (Olmesartan-Hctz 40-12.5 mg Tab) 1 Each Tablet, 1 EACH PO DAILY, TAB 11/17/22 Citalopram Hydrobromide (Citalopram HBr) 20 Mg Tablet, 20 MG PO DAILY, TAB 11/17/22 Metoprolol Succinate (Metoprolol Succinate) 50 Mg Tab.er.24h, 50 MG PO DAILY, TAB 11/17/22 Past Medical History Past Medical History: Diabetes-Type II, High Cholesterol, Hypertension, Pancreatitis Additional Past Medical Hx: HTN, DIABETES, CHOLESTEROL, KIDNEY PROBLEMS Surgical History: Bariatric Surgery, Surgical History Other: " REMOVAL FLUID FROM MY CHEST" Family History: DM, HTN Social History: Negative, Lives with family History: Not Applicable RN Note Reviewed/Agreed w/PFSH: Yes Review of System Dictation CONSTITUTIONAL: NEGATIVE EXCEPT FOR HPI GENERALIZED BODY WEAKNESS HEAD/FACE: NEGATIVE EXCEPT FOR HPI EENT: NEGATIVE EXCEPT FOR HPI RESPIRATORY: NEGATIVE EXCEPT FOR HPI GASTROINTESTINAL/ABDOMINAL: NEGATIVE EXCEPT FOR HPI DIFFUSE ABDOMINAL PAIN NAUSEA GENITOURINARY: NEGATIVE EXCEPT FOR HPI MUSCULOSKELETAL: NEGATIVE EXCEPT FOR HPI INTEGUMENTARY: NEGATIVE EXCEPT FOR HPI NEUROLOGICAL/PSYCH: NEGATIVE EXCEPT FOR HPI HEMATOLOGIC/LYMPHATIC: NEGATIVE EXCEPT FOR HPI ALL SYSTEMS NEGATIVE, EXCEPT NOTED ABOVE. 13 POINT REVIEW OF SYSTEMS ASSESSED AND ALL NEGATIVE EXCEPT FOR ABOVE. Initial Vital Sign VS Vital Signs Date Time Temp Pulse Resp B/P (MAP) Pulse Ox O2 Delivery O2 Flow Rate FiO2 02/08/25 09:44 98.4 78 20 127/61 99 Room Air 0 02/08/25 09:55 21 Physical Exam Dictation VITAL SIGNS REVIEWED GENERAL APPEARANCE: ALERT, ORIENTED X 3, MILD ACUTE DISTRESS, WELL DEVELOPED, NOURISHED. HEAD AND FACE: NON-TRAUMATIC. EYES: PERRL, PINK CONJUNCTIVAS, EYELID NO TRAUMA, ANTERIOR CHAMBER WITH ARCUS SENILIS. EARS: PINNAS INTACT AND NO SIGNS OF TRAUMA OR ERYTHEMA EAR CANALS CLEAR AND NO DISCHARGE TM NO ERYTHEMA NOSE: NO DISCHARGE, NO BLEEDING. OROPHARYNX: MOUTH NORMAL, TONGUE PINK, PHARYNX CLEAR,NO ERYTHEMA, TONSILS NO EXUDATES, NO ABSCESSES NOTED, MUCOUS MEMBRANE MOIST NECK: SUPPLE, NON-TENDER, NO THYROMEGALY, NO MASSES, NO JVD, NO BRUITS BREAST:DEFERRED CHEST:NO TENDERNESS, NO CREPITUS, NO PARADOXICAL MOVEMENT, NO RETRACTIONS LUNGS:CLEAR, WELL-VENTILATED, SYMMETRIC, NO RALES, NO WHEEZING, NO RHONCHI, NO STRIDOR, GOOD BREATH SOUNDS BILATERALLY HEART: REGULAR RATE, REGULAR RHYTHM, NO MURMUR, NO GALLOPS VASCULAR: NO PERIPHERAL EDEMA, ABDOMEN: SOFT, POSITIVE BOWEL SOUNDS, NONDISTENDED, NO GUARDING, DIFFUSE ABDOMINAL TENDERNESS, NO REBOUND, NO MASSES NO HEPATOMEGALY, NO SPLENOMEGALY, NO SCHUMACHER'S SIGN, NO HERNIAS. NO FOCAL PAIN RECTAL: DEFERRED GENITAL: DEFERRED NEUROLOGICAL: NORMAL SPEECH, MOTOR FUNCTION INTACT, SENSORY FUNCTION INTACT MUSCULOSKELETAL: NECK NONTENDER, FULL RANGE OF MOTION, BACK NONTENDER, FULL RANGE OF MOTION, EXTREMITIES: NONTENDER, FULL RANGE OF MOTION SKIN: COLOR PINK, DRY, NO TURGOR, NO RASH, NO LACERATIONS, NO ABRASIONS, NO CONTUSIONS. LYMPHATIC: DEFERRED Results (Laboratory/Radiology) Laboratory/Radiology Laboratory Tests Test 02/08/25 10:00 02/08/25 10:26 Urine Color YELLOW (YELLOW) Urine Appearance CLEAR (CLEAR) Urine pH 5.5 (5.0-8.0) Urine Specific [place] 1.016 (1.001-1.031) Urine Protein 100 mg/dL (NEGATIVE) H Urine Glucose (UA) NEGATIVE mg/dL (NEGATIVE) Urine Ketones NEGATIVE mg/dL (NEGATIVE) Urine Occult Blood NEGATIVE (NEGATIVE) Urine Nitrate NEGATIVE (NEGATIVE) Urine Bilirubin NEGATIVE mg/dL (NEGATIVE) Urine Urobilinogen 0.2 mg/dL (0.2-1.0) Urine Leukocyte Esterase 25 Sharath/uL (NEGATIVE) H Urine RBC 0-1 /HPF (0-1) Urine WBC 6-10 /HPF (0-1) H Urine Squamous Epithelial Cells RARE /HPF (0-2) Urine Bacteria None /HPF (None Seen) White Blood Count 7.9 K/uL (4.8-10.8) Red Blood Count 3.44 MIL/uL (4.00-5.50) L Hemoglobin 11.3 g/dL (12.0-16.0) L Hematocrit 33.0 % (36-48) L Mean Corpuscular Volume 95.9 fL (79-99) Mean Corpuscular Hemoglobin 32.8 pg (27.0-33.0) Mean Corpuscular Hemoglobin Concent 34.2 g/dL (32.0-36.0) Red Cell Distribution Width 13.1 % (11.0-15.5) Platelet Count 183 K/uL (130-400) Mean Platelet Volume 11.6 fL (7.5-10.5) H Immature Granulocyte % (Auto) 0.3 % (0-1) Neutrophils (%) (Auto) 67.8 % (40.0-77.0) Lymphocytes (%) (Auto) 23.0 % (21.0-51.0) Monocytes (%) (Auto) 6.8 % (3.0-13.0) Eosinophils (%) (Auto) 1.5 % (0.0-8.0) Basophils (%) (Auto) 0.6 % (0.0-5.0) Neutrophils # (Auto) 5.4 K/uL (1.8-7.7) Lymphocytes # (Auto) 1.8 K/uL (1.0-4.8) Monocytes # (Auto) 0.5 K/uL (0.1-1.0) Eosinophils # (Auto) 0.12 K/uL (0.00-0.70) Basophils # (Auto) 0.05 K/uL (0.00-0.20) Absolute Immature Granulocyte (auto 0.02 K/uL (0-1) Nucleated Red Blood Cells 0.0 % (0.0-0.19) Sodium Level 139 mmol/L (136-145) Potassium Level 4.2 mmol/L (3.5-5.1) Chloride Level 103 mmol/L (101-111) Carbon Dioxide Level 27 mmol/L (21-32) Blood Urea Nitrogen 23 mg/dL (7-18) H Creatinine 1.6 mg/dL (0.5-1.0) H Glomerular Filtration Rate Calc 33 mL/min (>90) Random Glucose 99 mg/dL (70-105) Total Calcium 9.2 mg/dL (8.5-10.1) Total Bilirubin 0.5 mg/dL (0.2-1.0) Aspartate Amino Transf (AST/SGOT) 24 U/L (10-37) Alanine Aminotransferase (ALT/SGPT) 22 U/L (12-78) Alkaline Phosphatase 105 U/L (50-136) Troponin I High Sensitivity 9 ng/L (4-50) Total Protein 7.1 g/dL (6.0-8.3) Albumin 3.5 g/dL (3.5-5.0) Lipase 70 U/L (16-77) Labs Reviewed?: Yes EKG Comment: EKG SINUS RHYTHM/HEART RATE 76/OCCASIONAL PACS/AXIS NORMAL ED Course ED Course Orders Procedure Category Date Status Time Cbc With Differential LAB 02/08/25 Complete 10:05 Comprehensive LAB 02/08/25 Complete Metabolic Panel 10:05 Troponin I High LAB 02/08/25 Complete Sensitivity 10:05 Urinalysis Profile LAB 02/08/25 Complete 10:05 12 Lead Ekg Tracing- EKG 02/08/25 Logged Technical 10:05 Lipase LAB 02/08/25 Complete 10:05 0.9%Nacl 1000ml (Ns PHA 02/08/25 Complete 1000ml) 10:30 Culture Urine CARLOS 02/08/25 In Process 10:51 Current Medications Medications (Trade) Dose Ordered Sig/Nicola Route PRN Reason Start Time Stop Time Status Last Admin Dose Admin Sodium Chloride 1,000 ml @ 0 mls/hr ONCE ONCE IV 02/08/25 10:30 02/08/25 10:31 DC 02/08/25 10:42 Vital Signs Date Time Temp Pulse Resp B/P (MAP) Pulse Ox O2 Delivery O2 Flow Rate FiO2 02/08/25 11:09 98.4 86 20 123/65 99 Room Air* 0 21 02/08/25 09:55 98.4 78 20 127/61 99 Room Air* 0 21 02/08/25 09:44 98.4 78 20 127/61 99 Room Air 0 1130 DISCUSSED CLINICAL FINDINGS AT LENGTH WITH PATIENT SHE IS AWARE THAT HIS NO ACS NO URINARY TRACT INFECTION THERE IS NO ELECTROLYTE IMBALANCE NO DEHYDRATION SHE HAS STAGE 3 CHRONIC KIDNEY DISEASE. SHE IS HAVING SIDE EFFECTS OF THE MEDICATIONS. SHE NEEDS TO FOLLOW BACK HER DO WHO DR. MAJOR PRESCRIBED THE MEDICATIONS. ALL QUESTIONS AND HEART Score Response (Comments) Value EKG: Repolarization changes 1 Age: > 65yrs (+2) 2 Risk Factors: 1-2 risk factors (+1) 1 Initial Troponin: Normal limit (0) 0 Total 4 Medical Decision Making MDM MDM: DIFFERENTIAL DIAGNOSIS: ACS/AMI/UTI/ELECTROLYTE IMBALANCE/DEHYDRATION/PANCREATITIS RATIONALE: TESTS CONSIDERED AND ORDERED SECONDARY TO SHARED DECISION MAKING INCLUDE: EKG/LABS PREVIOUS OUTSIDE RECORDS REVIEWED: OLD ER VISITS. RISK OF COMPLICATION AND/OR MORBIDITY OR MORTALITY OF PATIENT MANAGEMENT: NONE MEDICATIONS-PER MEDICATION RECONCILIATION NEED FOR HOSPITALIZATION: PATIENT DOES NOT MEET CRITERIA FOR HOSPITALIZATION. NONE NEED FOR EMERGENCY MAJOR/MINOR SURGERY: NO THERE ARE NO SOCIAL CONCERNS WITH THIS PATIENT. PRESCRIPTION DRUG MANAGEMENT NONE PRESCRIPTIONS WILL INCLUDE SYMPTOMATIC CARE PATIENT'S PRIOR EXTERNAL MEDICAL RECORDS FROM OTHER ER VISITS WERE REVIEWED BY ME INDICATED. PRIOR TESTING AND RESULTS FROM PREVIOUS VISITS WERE REVIEWED. PRIOR TESTS WERE TAKEN INTO ACCOUNT WITH MEDICAL DECISION MAKING AND RESOURCE UTILIZATION, INDEPENDENT HISTORIAN/HISTORIANS WERE USED TO OBTAIN COMPLETE MEDICAL HISTORY. I INDEPENDENTLY INTERPRETED THE TEST THAT WERE PERFORMED, RESULTS WERE REVIEWED BY ME AND CONSIDERED FINDINGS ON RADIOLOGY IF ORDERED. MEDICAL MANAGEMENT AND EXAMINATION INTERPRETATION DISCUSSIONS WERE HAD BY ME W ITH OTHER QUALIFIED HEALTHCARE PROFESSIONALS INDICATED FOR THE PATIENT'S CARE. DX & DISP Disposition: Discharge Departure Impression: Primary Impression: Medication side effects present Additional Impression: Stage 3 chronic kidney disease Condition: Stable Additional Instructions: FOLLOW-UP WITH PRIMARY CARE PROVIDER IN 1 TO 2 DAYS. TAKE MEDICATIONS DIRECTED HERE IN THE EMERGENCY ROOM. OKAY TO CONTINUE HOME MEDICATIONS UNLESS OTHERWISE DISCUSSED DURING YOUR VISIT IN THE EMERGENCY ROOM TODAY. RETURN TO YOUR NEAREST EMERGENCY ROOM IF SYMPTOMS WORSEN OR IF THERE IS NO IMPROVEMENT. CALL 911 IF YOU NEED IMMEDIATE ASSISTANCE. TAKE TYLENOL OR MOTRIN [id number] NEEDED AND IF NO CONTRAINDICATIONS ARE PRESENT. INCREASE ORAL HYDRATION. A WOUND CULTURE OR URINE CULTURE WAS ORDERED HERE IN THE EMERGENCY ROOM DEPARTMENT PLEASE FOLLOW-UP WITH PRIMARY CARE PROVIDER AND ADVISE THEM TO GET REPEAT PORTS FROM OUR FACILITY. IF YOU HAD ANY RE WRAP/SPLINTS THAT WERE APPLIED HERE, PLEASE DO NOT REMOVE THEM UNTIL YOU SEE YOUR PRIMARY CARE OR SPECIALTY. DIET AND ACTIVITY TOLERATED. CONTINUE YOUR MEDICATIONS FROM YOUR DOCTOR IN FOLLOW HIM FOR THE SIDE EFFECTS OF THE MEDICATION. Referrals: OPHELIA MCKEON DO (PCP) Time of Disposition: 11:35 I have reviewed the case, and I agree with, Diagnosis and Plan SIXTO CHIRINOS NP Feb 08, 2025 10:07
[2025-02-08 10:19] LABS: APPEARANCE,URINE CLEAR (CLEAR); GLUCOSE, URINE (UA) NEGATIVE (NEGATIVE); LEUKOCYTE ESTERASE ,URINE 25 Leu/uL (NEGATIVE); NITRATE,URINE NEGATIVE (NEGATIVE); OCCULT BLOOD,URINE NEGATIVE (NEGATIVE)
[2025-02-08 10:36] LABS: IMMATURE GRANULOCYTE ABSOLUTE 0.02 K/uL (0-1); NUCLEATED RED BLOOD CELLS 0.0 % (0.0-0.19); PLATELET COUNT (AUTO) 183 K/uL (130-400); RED BLOOD CELL COUNT(AUTO) 3.44 MIL/uL (4.00-5.50); RED CELL DISTRIBUTION WIDTH 13.1 % (11.0-15.5); WHITE BLOOD COUNT (AUTO) 7.9 K/uL (4.8-10.8)
[2025-02-08] MEDS: 0.9%NACL 1000ML 1,000 ML IV ONE (10:42)
[2025-02-08 10:44] LABS: ADD UA MICROSCOPIC YES
[2025-02-08 10:46] LABS: SQUAMOUS EPITHELIAL CELL,UR RARE /HPF (0-2)
[2025-02-08 10:51] LABS: ASPARTATE AMINOTRANSFERASE 24.0 U/L (10-37); CREATININE 1.6 mg/dL (0.5-1.0); GLOMERULAR FILTR. RATE CALC 33.0 mL/min (>90); GLUCOSE,RANDOM 99.0 mg/dL (70-105); SODIUM SERUM 139.0 mmol/L (136-145); TOTAL PROTEIN, SERUM 7.1 g/dL (6.0-8.3); UREA NITROGEN, BLOOD 23.0 mg/dL (7-18)
[2025-02-08 11:45] VITALS: BP 123/49; PULSE 95; RESP 20; TEMP 98.4; O2SAT 100
--- NOTE | 2025-02-08 12:06 | EKG ---
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
== END 2025-02-08 12:00 | disposition home or self-care (01) ==
LOC: EDH 09:42
DX: R53.1 Weakness (principal); T50.905A Adverse effect of unspecified drugs, medicaments and biological substances, initial encounter; I12.9 Hypertensive chronic kidney disease with stage 1 through stage 4 chronic kidney disease, or unspecified chronic kidney disease; E11.22 Type 2 diabetes mellitus with diabetic chronic kidney disease; N18.30 Chronic kidney disease, stage 3 unspecified; E78.00 Pure hypercholesterolemia, unspecified; I49.1 Atrial premature depolarization; Z79.899 Other long term (current) drug therapy; Y92.89 Other specified places as the place of occurrence of the external cause
CPT/HCPCS: 99284; 96360; 84484; 80053; 83690; 85025; 87086; 81001; 36415; 93005; J7030

== ENCOUNTER 2025-05-07 16:08 | Observation (INO) | payer OTHER, MEDICAID ==
[~2025-05-07] VITALS: Ht 152.4 cm; Wt 62.0 kg
[~2025-05-07 16:08] MED LIST changes: +ACET-2743 PO; +ASPI-1197 PO; +ATOR40TA69 PO; -CEFU500T67 PO; -DEXL60CA3 PO; -DIPH1TAB PO; -MECL-302 PO; -METO-391 PO; -METO5TAB87 PO; -ONDA-104 PO; -ONDA-243 PO; -ROSU20TA98 PO; -SUCR1TAB2 PO
[2025-05-07 16:47] LABS: IMMATURE GRANULOCYTE ABSOLUTE 0.01 K/uL (0-1); NUCLEATED RED BLOOD CELLS 0.0 % (0.0-0.19); PLATELET COUNT (AUTO) 147 K/uL (130-400); RED BLOOD CELL COUNT(AUTO) 3.02 MIL/uL (4.00-5.50); RED CELL DISTRIBUTION WIDTH 13.4 % (11.0-15.5); WHITE BLOOD COUNT (AUTO) 6.5 K/uL (4.8-10.8)
[2025-05-07 16:57] LABS: CREATININE 2.0 mg/dL (0.5-1.0); GLOMERULAR FILTR. RATE CALC 25.0 mL/min (>90); GLUCOSE,RANDOM 191.0 mg/dL (70-105); SODIUM SERUM 138.0 mmol/L (136-145); UREA NITROGEN, BLOOD 36.0 mg/dL (7-18)
--- NOTE | 2025-05-07 17:25 | NUR ---
ASSUMED CARE AT THIS TIME PT PLACED IN FAST TRACK
--- NOTE | 2025-05-07 17:34 | EKG ---
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
[2025-05-07 17:43] LABS: APPEARANCE,URINE CLEAR (CLEAR); GLUCOSE, URINE (UA) NEGATIVE (NEGATIVE); LEUKOCYTE ESTERASE ,URINE NEGATIVE Leu/uL (NEGATIVE); NITRATE,URINE NEGATIVE (NEGATIVE); OCCULT BLOOD,URINE NEGATIVE (NEGATIVE)
[2025-05-07 17:44] LABS: ADD UA MICROSCOPIC YES
[2025-05-07 17:45] LABS: NON-SQUAMOUS EPITHELIAL CELL <1 /HPF (0-2); OTHER CASTS, URINE 1 /LPF (None Seen); SQUAMOUS EPITHELIAL CELL,UR RARE /HPF (0-2)
[2025-05-07] MEDS: 0.9%NACL 1000ML 1,000 ML IV STA (17:53)
[2025-05-07] MEDS: HYDROcodone/APAP 5/325 1 TAB TABLET PO ONE (17:54)
--- NOTE | 2025-05-07 17:55 | NUR ---
PT REFUSING PO PAIN MEDICATIONS STATES DOES NOT WORK NOTIFIED [employer].
--- NOTE | 2025-05-07 18:01 | ERN ---
ED Note History of Present Illness Stated Complaint: CHRONIC PAIN TO TAILBONE Chief Complaint: Other Problems Time Seen by MD: 16:17 Time Seen by Midlevel: 16:20 Dictation: 79-year-old female coming in with complaints of sacral pain that has been going on for months. Patient states she has been seen multiple times by her primary care provider and states they just gave her tramadol but does not help anymore. Denies any recent traumas. Patient also states on Wednesday she took a tramadol and her depression medication and states has been feeling generally weak since then. Denies having any fever, nausea vomiting or diarrhea. Allergies: Coded Allergies: No Known Drug Allergies (Verified Allergy, Unknown, 02/26/16) lactose (Unverified Allergy, Unknown, BLOATING, 02/26/16) LACTOSE INTOLERANCE peanut (Unverified Allergy, Unknown, NAUSEA/VOMITING, 02/26/16) PEANUT INTOLERANCE Home Meds Reported Medications Acetaminophen (Tylenol Extra Strength) 500 Mg Tablet, 500 MG PO AD for PAIN. 2 TABS , TAB 03/30/25 Aspirin (Aspirin) 81 Mg Tab.chew, 81 MG PO AD, TAB.CHEW 03/30/25 Atorvastatin Calcium (LIPITOR) 40 Mg Tablet, 40 MG PO PM, TAB 03/30/25 Olmesartan/Hydrochlorothiazide (Olmesartan-Hctz 40-12.5 mg Tab) 1 Each Tablet, 1 EACH PO DAILY, TAB 11/17/22 Citalopram Hydrobromide (Citalopram HBr) 20 Mg Tablet, 20 MG PO DAILY, TAB 11/17/22 Past Medical History Past Medical History: Anxiety, Depression, Diabetes-Type II, Heart Disease, Hypertension Additional Past Medical Hx: HTN, DIABETES, CHOLESTEROL, KIDNEY PROBLEMS Surgical History: Appendectomy, Surgical History Other: " REMOVAL FLUID FROM MY CHEST" Family History: DM, HTN Social History: Negative, Lives with family History: Not Applicable Review of System Dictation Constitutional: Generalized body weakness Eyes: Negative for injury, pain,redness, and discharge ENT: Negative for injury,pain or swelling Cardiovascular: Negative for chest pain, palpitations, and edema Respiratory: Negative for shortness of breath, cough, and wheezing, Abdomen/GI: Negative for abdominal pain, nausea, vomiting, diarrhea, and constipation Back: Negative for injury and pain : Negative for injury, bleeding and discharge MS/Extremity: Negative for injury and deformity, complaining of sacral pain Skin: Negative for rash, and discoloration Neuro: Negative for headache, weakness, numbness, tingling, and seizure Psych: Negative for suicide ideation, homicidal ideation, and hallucinations Review of Systems: was completed Initial Vital Sign VS Vital Signs Date Time Temp Pulse Resp B/P (MAP) Pulse Ox O2 Delivery O2 Flow Rate FiO2 05/07/25 16:09 97.9 84 16 136/59 99 Room Air 0 05/07/25 18:00 21 Physical Exam Dictation General: awake, alert, NAD Head/Face: Normocephalic, atraumatic Eyes: PERRL, EOMI, vision at baseline ENT: oral cavity clear, TMs clear, no signs of infection Neck: Trachea midline, supple, no nuchal rigidity Cardiovascular: RRR, normal S1/S2, No MRGs, no JVD Respiratory: CTAB, no respiratory distress, No rales or wheezes Abdomen: Soft, non-tender, non-distended, normal bowel sounds, no guarding or rebound. Skin: Warm, dry, normal turgor, no rash MS/Extremity: Pulses equal, no cyanosis, neurovascular intact, FROM Neuro: COAx4, GCS 15, strength 5/5, CN 2-12 intact, normal cerebellar exam, normal gait, Psych: Normal behavior, mood, and affect normal Results (Laboratory/Radiology) Laboratory/Radiology Laboratory Tests Test 05/07/25 16:35 05/07/25 17:38 White Blood Count 6.5 K/uL (4.8-10.8) Red Blood Count 3.02 MIL/uL (4.00-5.50) L Hemoglobin 9.9 g/dL (12.0-16.0) L Hematocrit 30.7 % (36-48) L Mean Corpuscular Volume 101.7 fL (79-99) H Mean Corpuscular Hemoglobin 32.8 pg (27.0-33.0) Mean Corpuscular Hemoglobin Concent 32.2 g/dL (32.0-36.0) Red Cell Distribution Width 13.4 % (11.0-15.5) Platelet Count 147 K/uL (130-400) Mean Platelet Volume 11.2 fL (7.5-10.5) H Immature Granulocyte % (Auto) 0.2 % (0-1) Neutrophils (%) (Auto) 66.3 % (40.0-77.0) Lymphocytes (%) (Auto) 25.5 % (21.0-51.0) Monocytes (%) (Auto) 6.5 % (3.0-13.0) Eosinophils (%) (Auto) 0.9 % (0.0-8.0) Basophils (%) (Auto) 0.6 % (0.0-5.0) Neutrophils # (Auto) 4.3 K/uL (1.8-7.7) Lymphocytes # (Auto) 1.7 K/uL (1.0-4.8) Monocytes # (Auto) 0.4 K/uL (0.1-1.0) Eosinophils # (Auto) 0.06 K/uL (0.00-0.70) Basophils # (Auto) 0.04 K/uL (0.00-0.20) Absolute Immature Granulocyte (auto 0.01 K/uL (0-1) Nucleated Red Blood Cells 0.0 % (0.0-0.19) Sodium Level 138 mmol/L (136-145) Potassium Level 3.9 mmol/L (3.5-5.1) Chloride Level 102 mmol/L (101-111) Carbon Dioxide Level 26 mmol/L (21-32) Blood Urea Nitrogen 36 mg/dL (7-18) H Creatinine 2.0 mg/dL (0.5-1.0) H Glomerular Filtration Rate Calc 25 mL/min (>90) Random Glucose 191 mg/dL (70-105) H Total Calcium 8.4 mg/dL (8.5-10.1) L Urine Color COLORLESS (YELLOW) Urine Appearance CLEAR (CLEAR) Urine pH 7.5 (5.0-8.0) Urine Specific [place] 1.007 (1.001-1.031) Urine Protein 20 mg/dL (NEGATIVE) H Urine Glucose (UA) NEGATIVE mg/dL (NEGATIVE) Urine Ketones NEGATIVE mg/dL (NEGATIVE) Urine Occult Blood NEGATIVE (NEGATIVE) Urine Nitrate NEGATIVE (NEGATIVE) Urine Bilirubin NEGATIVE mg/dL (NEGATIVE) Urine Urobilinogen 0.2 mg/dL (0.2-1.0) Urine Leukocyte Esterase NEGATIVE Sharath/uL Urine RBC 0-1 /HPF (0-1) Urine WBC 2-5 /HPF (0-1) H Urine Squamous Epithelial Cells RARE /HPF (0-2) Urine Non-Squamous Epithelial Cells <1 /HPF (0-2) Urine Bacteria None /HPF (None Seen) Urine Other Casts 1 /LPF (None Seen) Labs Reviewed?: Yes X-RAY Comment: [facility] [address] [place] [address] IMAGING REPORT Signed PATIENT: VANESSA GARRISON MR#: [id number] : 1945 SEX: F AGE: 79 LOCATION: [facility]H ORDER 163 STATUS: REG ER REPORT#: [id number] SERVICE 27 REASON: pain ORDERING PHYSICIAN: ADRIANE CISNEROS CNP PROCEDURE: SAC ROGER 2V - SACRUM/COCCYX 2+VWS EXAM: CR Sacrum and Coccyx, 3 View. CLINICAL HISTORY: pain COMPARISON: None provided. FINDINGS: BONES: No acute fracture or aggressive appearing osseous lesion. Bony alignment is anatomic. SOFT TISSUES: The soft tissues are unremarkable. IMPRESSION: No acute osseous abnormality. /[place] DICTATED BY: ROSIE HAMM Jr., MD DATE: 05/07/251914 ELECTRONICALLY SIGNED BY: ROSIE HAMM Jr., MD DATE: 05/07/251914 ED Course ED Course Orders Procedure Category Date Status Time Cbc With Differential LAB 05/07/25 Complete 16:28 Basic Metabolic Panel LAB 05/07/25 Complete 16:28 Urinalysis Profile LAB 05/07/25 Complete 16:28 Sacrum/Coccyx 2+Vws RAD 05/07/25 Resulted 16:28 Hydrocodone/Apap PHA 05/07/25 Complete 5/325 ([place] 5/325mg) 16:30 0.9%Nacl 1000ml (Ns PHA 05/07/25 Complete 1000ml) 16:28 12 Lead Ekg Tracing- EKG 05/07/25 Complete Technical 16:30 Ondansetron 4mg Inj PHA 05/07/25 Complete (Zofran 4mg Inj) 18:00 Morphine 2mg Syg PHA 05/07/25 Complete (Morphine 2mg Syg) 18:00 Current Medications Medications (Trade) Dose Ordered Sig/Nicola Route PRN Reason Start Time Stop Time Status Last Admin Dose Admin Acetaminophen/ Hydrocodone Bitart (NORco 5/325MG) 1 tab ONCE ONCE PO 05/07/25 16:30 05/07/25 16:31 DC Morphine Sulfate (morPHINE 2MG SYG) 2 mg ONCE ONCE IVP 05/07/25 18:00 05/07/25 18:01 DC Ondansetron HCl (zoFRAN 4MG INJ) 4 mg ONCE ONCE IVP 05/07/25 18:00 05/07/25 18:01 DC Sodium Chloride 1,000 ml @ 1,000 mls/hr Q1H STAT IV 05/07/25 16:28 05/07/25 17:27 DC 05/07/25 17:53 Vital Signs Date Time Temp Pulse Resp B/P (MAP) Pulse Ox O2 Delivery O2 Flow Rate FiO2 05/07/25 18:00 97.9 76 16 131/73 98 Room Air* 0 21 05/07/25 16:09 97.9 84 16 136/59 99 Room Air 0 Medical Decision Making MDM MDM: 79-year-old female coming in with complaints of sacral pain that has been going on for months. Patient states she has been seen multiple times by her primary care provider and states they just gave her tramadol but does not help anymore. Denies any recent traumas. Patient also states on Wednesday she took a tramadol and her depression medication and states has been feeling generally weak since then. Denies having any fever, nausea vomiting or diarrhea. 1800 primary nurse was going to start an IV and gave her [place] that I ordered for pain control, patient refused pills, she states her doctor gives her pills all the time, states they do not work, and states she has not even eaten so she does not want her stomach to be upset. Patient states he does not want to take any p.o. medication. Morphine IV. 1814 patient refused morphine, states he does not want any medication because she says medication in his just for now in the to go home with. Discussed findings with the patient [id number] discussed that her kidney function is worsening could be due to dehydration as he she has not eaten or drank anything in two days due to being asleep. Patient agreed to be admitted to the hospital. Differential diagnosis: Select fracture, arthritis, dehydration Rationale: Tests considered and ordered secondary to shared decision making incl ude: Previous outside records reviewed: Old ER visits. Risk of complication and/or morbidity or mortality of patient management: None Medications-Per medication reconciliation Need for hospitalization: Patient does not meet criteria for hospitalization. Need for emergency major/minor surgery: No There are no social concerns with this patient. Prescription drug management Prescriptions will include symptomatic care Patient's prior external medical records from other ER visits were reviewed by me as indicated. Prior testing and results from previous visits were reviewed. Prior tests were taken into account with medical decision making and resource utilization, independent historian/historians were used to obtain complete medical history. I independently interpreted the test that were performed, results were reviewed by me and considered findings on radiology if ordered. Medical management and examination interpretation discussions were had by me with other qualified healthcare professionals as indicated for the patient's care DX & DISP Disposition: Inpatient Decision to Admit Date: May 07, 2025 Decision to Admit Time: 18:44 Departure Impression: Primary Impression: Dehydration Additional Impressions: Arthritis, Acute on chronic kidney failure Condition: Stable Referrals: OPHELIA MCKEON DO (PCP) I have reviewed the case, and I agree with, Diagnosis and Plan ADRIANE CISNEROS CNP May 07, 2025 18:00
--- NOTE | 2025-05-07 18:16 | HMCIMG ---
EXAM: CR Sacrum and Coccyx, 3 View. CLINICAL HISTORY: pain COMPARISON: None provided. FINDINGS: BONES: No acute fracture or aggressive appearing osseous lesion. Bony alignment is anatomic. SOFT TISSUES: The soft tissues are unremarkable. IMPRESSION: No acute osseous abnormality. /[place]
--- NOTE | 2025-05-07 18:45 | HP ---
[facility] HISTORY & PHYSICAL Date Patient Seen: May 07, 2025 Time of Visit: 18:45 Supervising Physician: Dr. Mark Anthony Andrew Primary Care Physician: Dr. Arabella Dunn Outpatient Specialists: Inpatient Consults: controls designer PROBLEM LIST: Acute kidney injury, GFR 25 Acute on chronic kidney disease (GFR 38 on 03/30/2025) Dehydration Acute on chronic sacral pain, POA Arthritis Anemia of chronic kidney disease Diabetes mellitus with hyperglycemia Proteinuria Uncontrolled hyperglycemia Uncontrolled hypertension Chronic problem list: Anxiety, depression, DM type 2, heart disease, chronic kidney disease, hypercholesteremia, hypertension, chronic sacral pain HPI: Ms. Zapien is a 79-year-old female with a history of anxiety, depression, diabetes-type II, heart disease, kidney problems, cholesterol, and hypertension who presented to [facility] ED via EMS for evaluation of acute on chronic sacral pain that has been going on for about a year. The patient reports that her pain management doctor has been given her injections for her sacral pain and one of those times he hit the bone and since then the pain has gotten worse. The Patient stated she has been seen multiple times by her primary care provider and says they just gave her tramadol, which does not help anymore. She says that on Wednesday, she took a tramadol and her depression medication and stated she has been feeling generally weak. The patient denied any recent traumas, fever, nausea, vomiting, or diarrhea. VS: HR 84 bmp, RR 16 bmp, BP 136/59, 99% RA, 97.9 F, Labs: Chemistry: BUN 36, Creatinine 2.0, Random Glucose 191, Total Calcium 8.4, Hematology: RBC 3.02, Hgb 9.9, Hct 30.7, MCV 101.7, MPV 11.2, UA: Negative Nitrate, Negative Leukocyte, Sacrum and Coccyx X-Ray: No acute osseous abnormality. I assessed the patient at bedside in room 408. No family members at bedside. The patient appeared comfortable, breathing was even, unlabored, and in no distress. She reports that she follows with Dr. Jorgensen, controls designer for her chronic kidney disease. The patient reports that she drinks a lot of water. I answered her multiple questions, informed her of labs, diagnostics, and plan of care. She verbalized understanding and is in agreement with the plan. Plan and assessment are listed below. PAST MEDICAL HX: see above PAST SURGICAL HX: Appendectomy, and "removal of fluid from chest". SOCIAL HISTORY: No tobacco, ETOH, or illicit drug use Coded Allergies: No Known Drug Allergies (Verified Allergy, Unknown, 02/26/16) lactose (Unverified Allergy, Unknown, BLOATING, 02/26/16) LACTOSE INTOLERANCE peanut (Unverified Allergy, Unknown, NAUSEA/VOMITING, 02/26/16) PEANUT INTOLERANCE REVIEW OF SYSTEMS: 12 point ROS reviewed with patient. Pertinent positives mentioned above. Otherwise negative. PHYSICAL EXAM: GENERAL: Alert, weak, awake oriented x 3. Calm cooperative HEENT: EOMI, Sclera non icteric, moist mucosa NECK: Supple, no JVD, trachea midline LUNGS: Clear breath sounds bilaterally. No wheezes HEART: Regular rate and rhythm. Normal S1 and S2, without murmurs ABD: Abdomen soft, nontender. Bowel sounds present EXT: No clubbing cyanosis or edema NEURO: Alert and oriented x3, follows commands Vital Signs (last 8hr) Date Time Temp Pulse Resp B/P (MAP) Pulse Ox O2 Delivery O2 Flow Rate FiO2 05/07/25 18:00 97.9 76 16 131/73 98 Room Air* 0 21 05/07/25 16:09 97.9 84 16 136/59 99 Room Air 0 LABS: Hematology Labs: Test 05/07/25 16:35 Range/Units White Blood Count 6.5 4.8-10.8 K/uL Red Blood Count 3.02 L 4.00-5.50 MIL/uL Hemoglobin 9.9 L 12.0-16.0 g/dL Hematocrit 30.7 L 36-48 % Mean Corpuscular Volume 101.7 H 79-99 fL Mean Corpuscular Hemoglobin 32.8 27.0-33.0 pg Mean Corpuscular Hemoglobin Concent 32.2 32.0-36.0 g/dL Red Cell Distribution Width 13.4 11.0-15.5 % Platelet Count 147 130-400 K/uL Mean Platelet Volume 11.2 H 7.5-10.5 fL Immature Granulocyte % (Auto) 0.2 0-1 % Neutrophils (%) (Auto) 66.3 40.0-77.0 % Lymphocytes (%) (Auto) 25.5 21.0-51.0 % Monocytes (%) (Auto) 6.5 3.0-13.0 % Eosinophils (%) (Auto) 0.9 0.0-8.0 % Basophils (%) (Auto) 0.6 0.0-5.0 % Neutrophils # (Auto) 4.3 1.8-7.7 K/uL Lymphocytes # (Auto) 1.7 1.0-4.8 K/uL Monocytes # (Auto) 0.4 0.1-1.0 K/uL Eosinophils # (Auto) 0.06 0.00-0.70 K/uL Basophils # (Auto) 0.04 0.00-0.20 K/uL Absolute Immature Granulocyte (auto 0.01 0-1 K/uL Nucleated Red Blood Cells 0.0 0.0-0.19 % Chemistry Labs: Test 05/07/25 16:35 Range/Units Sodium Level 138 136-145 mmol/L Potassium Level 3.9 3.5-5.1 mmol/L Chloride Level 102 101-111 mmol/L Carbon Dioxide Level 26 21-32 mmol/L Blood Urea Nitrogen 36 H 7-18 mg/dL Creatinine 2.0 H 0.5-1.0 mg/dL Glomerular Filtration Rate Calc 25 >90 mL/min Random Glucose 191 H 70-105 mg/dL Total Calcium 8.4 L 8.5-10.1 mg/dL DIAGNOSTICS / RADIOLOGY RESULTS: [ ] PLAN -Admit to medical floor with telemetry monitoring. -Continue gentle IV hydration overnight. -Consult controls designer. -Keep the patient in euvolemic state. Correct electrolytes accordingly. Avoid nephrotoxic medications. -Adjust medications according to renal function. -Obtain renal sonogram. -PRN medications for: Pain management, fever, hypertension, N/V, constipation. -Glucometer checks AC & HS needed with insulin regular sliding scale coverage as needed. -Blood pressure checks every 4 hours and as needed. -Reconcile home medications once available. - Monitor renal and liver function. -Monitor electrolytes and treat accordingly PRN -AM labs. -GI and DVT prophylaxis -Further plan/orders per hospitalization course. Resume home medication aspirin, atorvastatin, citalopram, Olmesartan/hydrochlorothiazide NEURO: Minimize central acting medications as possible. Maintain fall precautions, adequate lighting during the day PULMONARY: Supplemental 02 as needed. Maintain aspiration precautions at all times CARDIOVASCULAR: Follow hemodynamics. Vital signs per facility protocol GI & NUTRITION: Continue with nutritional support. Continue stool softeners and laxatives as needed. KIDNEYS & ELECTROLYTES: Strict monitoring of intake, output and overall fluid balance. Avoid nephrotoxic medications to the extent possible. Medications to be dosed according to renal function. Monitor electrolytes and replace as needed ENDOCRINE: Maintain blood glucose between 100-180 at all times. Hypoglycemia protocol in place INFECTIOUS DISEASE: Trend temperature, WBC and procalcitonin level Follow cultures, deescalate antibiotics as soon as possible. Panculture if new onset fever ONCOLOGY/HEMATOLOGY/COAGULATION: Monitor for s/s of bleeding Monitor hemoglobin, coagulation studies as needed SKIN: Pressure ulcer prevention per facility protocol Specialty mattress ORTHO/REHAB: Continue PT/OT Prophylaxis: Continue GI and DVT prophylaxis Code Status: Full Resuscitation Disposition: TBD ATTESTATION BY PHYSICIAN The patient has been seen and evaluated, the case has been discussed with the MANUFACTURING CHIEF ENGINEER, I agree with the clinical findings and plan of care. Mark Anthony Andrew MD, [facility] May 07, 2025 18:45
--- NOTE | 2025-05-07 18:54 | NUR ---
PT DOES NOT WANT IV PAIN MEDS TILL SHE IS PLACED IN A ROOM
--- NOTE | 2025-05-07 19:15 | NUR ---
PLACED IN ER ROOM
[2025-05-07] MEDS ORDERED: LACTULOSE 20 GM/30 ML UDCUP PO PRN (19:30)
[2025-05-07] MEDS: FAMOTIDINE 20MG TAB PO SCH (21:36)
[2025-05-07] MEDS: LACTATED RINGERS 1000ML 1,000 ML IV ONE (21:37)
[2025-05-07 22:25] VITALS: BP 162/73; PULSE 78; RESP 22; TEMP 97.7
[2025-05-07 22:53] VITALS: O2SAT 98
--- NOTE | 2025-05-07 23:32 | NUR ---
Arrival Patient arrived at 2225. Patient alert and oriented x4. Patient reports no pain at this time. Patient requested a snack. Patient did ambulate to the restroom, void x1.
[2025-05-08] VITALS (8 sets, daily range): BP systolic 109–137; BP diastolic 38–66; PULSE 61–73; RESP 17–19; TEMP 97.9–98.1; O2SAT 98–99
[2025-05-08] MEDS: HYDROcodone/APAP 5/325 1 TAB TABLET PO PRN (02:24)
[2025-05-08 04:26] LABS: NUCLEATED RED BLOOD CELLS 0.0 % (0.0-0.19); PLATELET COUNT (AUTO) 148.0 K/uL (130-400); RED BLOOD CELL COUNT(AUTO) 3.0 MIL/uL (4.00-5.50); RED CELL DISTRIBUTION WIDTH 13.2 % (11.0-15.5); WHITE BLOOD COUNT (AUTO) 6.5 K/uL (4.8-10.8)
[2025-05-08 04:49] LABS: CREATININE 1.8 mg/dL (0.5-1.0); GLOMERULAR FILTR. RATE CALC 28.0 mL/min (>90); GLUCOSE,RANDOM 99.0 mg/dL (70-105); PHOSPHORUS 4.3 mg/dL (2.5-4.9); SODIUM SERUM 142.0 mmol/L (136-145); UREA NITROGEN, BLOOD 34.0 mg/dL (7-18)
[2025-05-08] MEDS: ASPIRIN 81MG CHEW TAB PO SCH (10:09)
[2025-05-08] MEDS: ENOXAPARIN SODIUM 30 MG/0.3 ML SQ SCH (10:11)
--- NOTE | 2025-05-08 14:32 | NUR ---
DCP:HOME Pt currently lives with her daughter Arabella Valero [phone]. Pt states that she uses a cane and walker at home to ambulate. Pt has a provider that works with her approx 4 hrs and assist with all ADLs, home management, and meals. PCP is Arabella Dunn and uses [facility] for any RX needs. At DC pt will want to go home and family can assist with transportation.
--- NOTE | 2025-05-08 15:06 | PN ---
[facility] PROGRESS NOTE Date Patient Seen: May 08, 2025 Time of Visit: 1248 Supervising Physician: Dr. Andrew Primary Care Physician: Dr. Arabella Dunn Outpatient Specialists: Inpatient Consults: resident programs assistant PROBLEM LIST: Acute on chronic kidney disease Acute Dehydration Acute on chronic sacral pain, POA Arthritis Anemia of chronic kidney disease Diabetes mellitus type 2 with hyperglycemia A1c 6.2 Proteinuria Uncontrolled hyperglycemia Uncontrolled hypertension Chronic problem list: Anxiety, depression, DM type 2, heart disease, chronic kidney disease, hypercholesteremia, hypertension, chronic sacral pain INTERVAL HISTORY: 05/08 patient was seen and examined by bedside with no family present. At time of visit patient denies any chest pain or shortness of breadth. Denies any nausea vomiting or abdominal pain. Patient's serum creatinine level noted to be trending down today 1.8 Upon admission 2.0. Patient does have chronic kidney disease however baseline appears to be around 1.5. Patient currently pending renal ultrasound. An evaluation from Nephrology's. Appreciate assistance we will follow their recommendations. If ultrasound is unremarkable and patient is cleared by Nephrology's plan will be for discharge tomorrow morning. REVIEW OF SYSTEMS: 12 point ROS reviewed with patient. Pertinent positives mentioned above. Otherwise negative. PHYSICAL EXAM: GENERAL: Alert, weak, awake oriented x 3. Calm cooperative HEENT: EOMI, Sclera non icteric, moist mucosa NECK: Supple, no JVD, trachea midline LUNGS: Clear breath sounds bilaterally. No wheezes HEART: Regular rate and rhythm. Normal S1 and S2, without murmurs ABD: Abdomen soft, nontender. Bowel sounds present EXT: No clubbing cyanosis or edema NEURO: Alert and oriented x3, follows commands Vital Signs (last 8hr) Date Time Temp Pulse Resp B/P (MAP) Pulse Ox O2 Delivery O2 Flow Rate FiO2 05/08/25 12:22 98.1 61 17 109/38 97 Room Air 05/08/25 10:46 98 Room Air* 0 21 05/08/25 07:56 98.1 64 18 110/51 98 Room Air LABS: Hematology Labs: Test 05/08/25 03:57 05/07/25 16:35 Range/Units White Blood Count 6.5 4.8-10.8 K/uL Red Blood Count 3.00 L 4.00-5.50 MIL/uL Hemoglobin 9.9 L 12.0-16.0 g/dL Hematocrit 29.3 L 36-48 % Mean Corpuscular Volume 97.7 79-99 fL Mean Corpuscular Hemoglobin 33.0 27.0-33.0 pg Mean Corpuscular Hemoglobin Concent 33.8 32.0-36.0 g/dL Red Cell Distribution Width 13.2 11.0-15.5 % Platelet Count 148 130-400 K/uL Mean Platelet Volume 11.6 H 7.5-10.5 fL Nucleated Red Blood Cells 0.0 0.0-0.19 % Immature Granulocyte % (Auto) 0.2 0-1 % Neutrophils (%) (Auto) 66.3 40.0-77.0 % Lymphocytes (%) (Auto) 25.5 21.0-51.0 % Monocytes (%) (Auto) 6.5 3.0-13.0 % Eosinophils (%) (Auto) 0.9 0.0-8.0 % Basophils (%) (Auto) 0.6 0.0-5.0 % Neutrophils # (Auto) 4.3 1.8-7.7 K/uL Lymphocytes # (Auto) 1.7 1.0-4.8 K/uL Monocytes # (Auto) 0.4 0.1-1.0 K/uL Eosinophils # (Auto) 0.06 0.00-0.70 K/uL Basophils # (Auto) 0.04 0.00-0.20 K/uL Absolute Immature Granulocyte (auto 0.01 0-1 K/uL Chemistry Labs: Test 05/08/25 10:47 05/08/25 03:57 Range/Units Whole Blood Glucose 114 H 70-110 MG/DL Sodium Level 142 136-145 mmol/L Potassium Level 4.2 3.5-5.1 mmol/L Chloride Level 108 101-111 mmol/L Carbon Dioxide Level 27 21-32 mmol/L Blood Urea Nitrogen 34 H 7-18 mg/dL Creatinine 1.8 H 0.5-1.0 mg/dL Glomerular Filtration Rate Calc 28 >90 mL/min Random Glucose 99 70-105 mg/dL Hemoglobin A1c 6.2 H 4.0-6.0 % Estimated Average Glucose (eAG) 131 H 70-126 mg/dL Total Calcium 8.3 L 8.5-10.1 mg/dL Phosphorus Level 4.3 2.5-4.9 mg/dL Magnesium Level 2.20 1.80-2.40 mg/dL Thyroid Stimulating Hormone (TSH) 8.29 #H 0.36-3.74 uIU/mL DIAGNOSTICS / RADIOLOGY RESULTS: na PLAN Follow up with a renal ultrasound Follow up with Nephrology's recommendations If cleared from Nephrology's renal ultrasound unremarkable plan is for discharge tomorrow morning Continue to monitor serum creatinine level closely Repeat BNP tomorrow morning NEURO: Minimize central acting medications as possible. Maintain fall precautions, adequate lighting during the day PULMONARY: Supplemental 02 as needed. Maintain aspiration precautions at all times CARDIOVASCULAR: Follow hemodynamics. Vital signs per facility protocol GI & NUTRITION: Continue with nutritional support. Continue stool softeners and laxatives as needed. KIDNEYS & ELECTROLYTES: Strict monitoring of intake, output and overall fluid balance. Avoid nephrotoxic medications to the extent possible. Medications to be dosed according to renal function. Monitor electrolytes and replace as needed ENDOCRINE: Maintain blood glucose between 100-180 at all times. Hypoglycemia protocol in place INFECTIOUS DISEASE: Trend temperature, WBC and procalcitonin level Follow cultures, deescalate antibiotics as soon as possible. Panculture if new onset fever ONCOLOGY/HEMATOLOGY/COAGULATION: Monitor for s/s of bleeding Monitor hemoglobin, coagulation studies as needed SKIN: Pressure ulcer prevention per facility protocol Specialty mattress ORTHO/REHAB: Continue PT/OT Prophylaxis: Continue GI and DVT prophylaxis Code Status: Full Resuscitation Disposition: TBD Case discussed with supervising physician plan of care agreed upon JULIA TRIPLETT May 08, 2025 15:06
[2025-05-09] VITALS: BP 120/63; PULSE 69; RESP 18; TEMP 98.3
[2025-05-09 04:00] VITALS: BP 119/56; PULSE 70; RESP 18; TEMP 98.4
[2025-05-09 05:00] LABS: CREATININE 2.0 mg/dL (0.5-1.0); GLOMERULAR FILTR. RATE CALC 25.0 mL/min (>90); GLUCOSE,RANDOM 86.0 mg/dL (70-105); PHOSPHORUS 5.3 mg/dL (2.5-4.9); SODIUM SERUM 139.0 mmol/L (136-145); UREA NITROGEN, BLOOD 30.0 mg/dL (7-18)
--- NOTE | 2025-05-09 05:54 | HMCIMG ---
EXAMINATION: ULTRASOUND OF THE RETROPERITONEUM. CLINICAL HISTORY: JARAD on CKD. COMPARISON: None. TECHNIQUE: Real-time grayscale ultrasound images of the kidneys. FINDINGS: The kidneys are normal in caliber, the right kidney measures 10.4 x 5.0 x 4.1 cm and the left kidney measures 9.3 x 5.2 x 4.0 cm in its craniocaudal, AP, and transverse dimensions respectively. There is normal renal cortical thickness, and increased cortical echogenicity. There is no renal calculus or hydronephrosis. There is a simple cortical cyst that measures 0.5 x 0.6 x 0.6 cm in the mid pole of the right kidney. The urinary bladder is partially distended with normal wall thickness (0.5 cm). There are no calculi in the urinary bladder. IMPRESSION: Bilateral renal parenchymal disease.Right renal simple cortical cyst. /[facility]
[2025-05-09 07:59] VITALS: BP 136/77; PULSE 72; RESP 14; TEMP 97.9
[2025-05-09 08:00] VITALS: O2SAT 96
--- NOTE | 2025-05-09 11:29 | CONS ---
NEPHROLOGY CONSULTATION REASON FOR CONSULTATION: Evaluation of the patient with abnormal kidney function. HISTORY OF PRESENT ILLNESS: The patient is a 79-year-old lady who is known to my service. She has a history of chronic kidney disease 3B with a baseline GFR of 38 mL/min; diabetes mellitus type 2, hypertension, depression. The patient claimed that she took 2 tablets, one for depression and the other one to help her for her insomnia. She went to sleep for about 2 days. She did not have any fluid intake for such time. She felt very weak and decided to seek medical attention. The patient is being admitted with dehydration. The patient's main complaint is lumbago affecting the right lower area of the back. She denies any dysuria. She denies any gross hematuria. No fever. No cough. The patient was admitted for dehydration and she has been hydrated. The renal function was found to be minimally decreased. PAST MEDICAL HISTORY: As outlined in the history of present illness. FAMILY HISTORY: Noncontributory to this admission. SOCIAL HISTORY: No history of alcohol abuse or smoking. CURRENT MEDICATIONS: Reviewed. ALLERGIES: LACTOSE AND PEANUTS. REVIEW OF SYSTEMS: Generalized body weakness, insomnia. Rest of review of systems is negative. PHYSICAL EXAMINATION: GENERAL: Reveals a pleasant lady in no major acute distress. VITAL SIGNS: Blood pressure 113/58, respirations 17, pulse 73, temperature 98.1. HEENT: Normocephalic. NECK: Supple. No JVD. Trachea central. LUNGS: Clear on auscultation and inspection. HEART: Normal cardiac sound. No gallops. ABDOMEN: Soft, nondistended. EXTREMITIES: Right lower extremity shows no edema or cyanosis. Left lower extremity: No edema or cyanosis. SKIN: No rash or ecchymosis. PSYCHIATRIC: The patient is awake, alert, and oriented to person and place. NEUROLOGIC: Cranial nerves are intact. No focal motor and sensory deficits. LABORATORY DATA: WBC count 6.5, hemoglobin 9.9. Sodium is 142, potassium 4.2, BUN 34, creatinine 1.8. ASSESSMENT: * Acute kidney injury, which is very mild. The patient had admission serum creatinine of 2.0. Presented some hydration, the serum creatinine has declined to 1.8 mg/dL. * Chronic kidney disease stage 3B with a baseline estimated GFR of 38 mL/min. * Diabetes mellitus type 2. * Hypertension. * Anemia, likely of chronic kidney disease. * Dehydration. * History of depression. * Chronic lumbago. PLAN: The plan is to continue current diet. Hydration to continue. Monitor electrolytes. Monitor renal function. There were nephrotoxic agents. After hydration, the patient can be discharged home safely. The patient has a followup in the outpatient Nephrology Clinic. TID: [id number] RECEIPT: [id number]
[2025-05-09 12:09] VITALS: BP 136/101; PULSE 75; RESP 18; TEMP 98.3
--- NOTE | 2025-05-09 14:07 | DS ---
[facility] DISCHARGE SUMMARY Date Patient Seen: May 09, 2025 Time of Visit: 1213 Supervising Physician: Dr. Jarrell Primary Care Physician: Dr. Arabella Dunn Outpatient Specialists: Inpatient Consults: clean room assembler PROBLEM LIST: Acute on chronic kidney disease, stable back to baseline Acute Dehydration , resolved Acute on chronic sacral pain, POA, resolved Arthritis Anemia of chronic kidney disease Diabetes mellitus type 2 with hyperglycemia A1c 6.2 Proteinuria Uncontrolled hyperglycemia Uncontrolled hypertension Chronic problem list: Anxiety, depression, DM type 2, heart disease, chronic kidney disease, hypercholesteremia, hypertension, chronic sacral pain HOSPITAL COURSE: HPI (per admitting provider) Ms. Zapien is a 79-year-old female with a history of anxiety, depression, diabetes-type II, heart disease, kidney problems, cholesterol, and hypertension who presented [place] [facility] [place] for evaluation of acute on chronic sacral pain that has been going on for about a year. The patient reports that her pain management doctor has been given her injections for her sacral pain and one of those times he hit the bone and since then the pain has gotten worse. The Patient stated she has been seen multiple times by her primary care provider and says they just gave her tramadol, which does not help anymore. She says that on Wednesday, she took a tramadol and her depression medication and stated she has been feeling generally weak. The patient denied any recent traumas, fever, nausea, vomiting, or diarrhea. VS: HR 84 bmp, RR 16 bmp, BP 136/59, 99% RA, 97.9 F, Labs: Chemistry: BUN 36, Creatinine 2.0, Random Glucose 191, Total Calcium 8.4, Hematology: RBC 3.02, Hgb 9.9, Hct 30.7, MCV 101.7, MPV 11.2, UA: Negative Nitrate, Negative Leukocyte, Sacrum and Coccyx X-Ray: No acute osseous abnormality. I assessed the patient at bedside in room 408. No family members at bedside. The patient appeared comfortable, breathing was even, unlabored, and in no distress. She reports that she follows with Dr. Jorgensen, clean room assembler for her chronic kidney disease. The patient reports that she drinks a lot of water. I answered her multiple questions, informed her of labs, diagnostics, and plan of care. She verbalized understanding and is in agreement with the plan. Plan and assessment are listed below. Patient was seen and examined by bedside with no family present. Patient is awake alert able to answer simple questions appropriately. Patient denies any chest pain or shortness of breadth. Denies any nausea vomiting or abdominal pain. Patient's sacrum pain has resolved patient's sacrum x-ray was unremarkable. Patient's renal ultrasound shows no hydronephrosis. Patient has been cleared by Nephrology for discharge. Instructed patient be getting discharged today and will need to follow up with PCP and Nephrology within 3-5 d ays upon discharge. Patient voices understanding and agrees with plan has no questions at this time The patient was treated for the following problems: ACTIVE PROBLEM LIST FOR THE HOSPITALIZATION: CHRONIC PROBLEMS: continue previous management per PCP unless otherwise indicated MOLD MAKER HELPER FINDINGS/RECOMMENDATIONS: Cleared by Nephrology to follow up within one week PROCEDURES: as mentioned above DISCHARGE MEDICATIONS: Pt hemodynamically stable and afebrile at time of discharge. PCP notified of patients admission, hospital course and discharge. Continued Medications: Aspirin (Aspirin) 81 Mg Tab.chew 81 MG PO DAILY, TAB.CHEW Atorvastatin Calcium (Lipitor) 40 Mg Tablet 40 MG PO PM, TAB Citalopram Hydrobromide (Citalopram HBr) 20 Mg Tablet 20 MG PO HS, TAB Olmesartan/Hydrochlorothiazide (Olmesartan-Hctz 40-12.5 mg Tab) 1 Each Tablet 1 EACH PO DAILY, TAB PHYSICAL EXAM: GENERAL: Alert, weak, awake oriented x 3. Calm cooperative HEENT: EOMI, Sclera non icteric, moist mucosa NECK: Supple, no JVD, trachea midline LUNGS: Clear breath sounds bilaterally. No wheezes HEART: Regular rate and rhythm. Normal S1 and S2, without murmurs ABD: Abdomen soft, nontender. Bowel sounds present EXT: No clubbing cyanosis or edema NEURO: Alert and oriented x3, follows commands FOLLOW-UP: Follow-up with PCP in 2-3 days Follow up with Nephrology within 3-5 days RECOMMENDATIONS: See Discharge Instructions This case was seen and discussed with my supervising physician. 35 minutes spent on discharge process, including evaluation of the patient, discussion with nursing staff, medication reconciliation and follow-up appointments JULIA TRIPLETT May 09, 2025 14:07
--- NOTE | 2025-05-09 14:10 | NUR ---
DISCHARGE DISCHARGE ORDERS OBTAINED FOR PATIENT TO BE DISCHARGED HOME. DISCHARGE INSTRUCTIONS AND DOCUMENTATION GIVEN TO PATIENT. VOICED UNDERSTANDING. PATIENT REFUSED TO WAIT FOR FOLLOW UP APPOINTMENTS, STATING "WANTS TO LEAVE TO EAT." IV DISCONTINUED BY RUTHIE HUNTLEY. CATHETER INTACT, NO S/S OF INFECTION NOTED TO SITE. PATIENT TOLERATED WELL. BANDS REMOVED. PENDING TRANSPORTATION.
--- NOTE | 2025-05-09 14:13 | NUR ---
DISCHARGE PATIENT STATED WILL DRIVE HERSELF HOME D/T CAR BEING PARKED IN ER PARKING LOT. PATIENT STATED "I CAME ALONE TO THE HOSPITAL, I CAN LEAVE ALONE!" EDUCATED PATIENT ON SAFETY PRECAUTIONS, VOICED UNDERSTANDING, HOWEVER CONTINUED TO VOICE SHE WILL GO HOME ALONE. PATIENT TAKING VIA WHEELCHAIR. NO S/S OF DISTRESS NOTED.
== END 2025-05-09 14:25 | disposition home or self-care (01) ==
LOC: EDH 16:08 → EDHIP 18:37 → 4BH 21:51
PROVIDERS: ADMIT Internal Medicine; ATTEND Internal Medicine
DX: I12.9 Hypertensive chronic kidney disease with stage 1 through stage 4 chronic kidney disease, or unspecified chronic kidney disease (principal); E11.22 Type 2 diabetes mellitus with diabetic chronic kidney disease; N18.32 Chronic kidney disease, stage 3b; N17.9 Acute kidney failure, unspecified; D63.1 Anemia in chronic kidney disease; M53.3 Sacrococcygeal disorders, not elsewhere classified; E11.65 Type 2 diabetes mellitus with hyperglycemia; M54.50 Low back pain, unspecified; E78.00 Pure hypercholesterolemia, unspecified; F32.A Depression, unspecified; F41.9 Anxiety disorder, unspecified; G47.00 Insomnia, unspecified; R80.9 Proteinuria, unspecified; Z91.010 Allergy to peanuts; Z79.899 Other long term (current) drug therapy; Z98.890 Other specified postprocedural states
CPT/HCPCS: 96374; 96361 ×2; 96375; 99285; 80048 ×2; 85025; 82948 ×7; 81001; 36415 ×3; 72220; 93005; 96372 ×2; 83036; 84443; 83735; 84100; 85027; 76770; 80069; G0378 ×44; J7120; J2270; J7030; J2405; J1650 ×2

== ENCOUNTER 2025-06-20 13:33 | Emergency (ER) | payer OTHER, MEDICAID ==
[~2025-06-20] VITALS: Ht 152.4 cm; Wt 62.6 kg
[~2025-06-20 13:33] MED LIST changes: -ACET-2743 PO
[2025-06-20 13:34] VITALS: BP 125/59; PULSE 76; RESP 18; TEMP 98.2
--- NOTE | 2025-06-20 15:13 | NUR ---
PATIENT CARE ASSUMED AT THIS TIME.
--- NOTE | 2025-06-20 16:13 | NUR ---
PATIENT NOT IN FAST TRACK AREA NOR LOBBY.
== END 2025-06-20 16:17 | disposition left against medical advice (07) ==
LOC: EDH 13:33
DX: M54.9 Dorsalgia, unspecified (principal); Z53.21 Procedure and treatment not carried out due to patient leaving prior to being seen by health care provider
CPT/HCPCS: 99281